=== PATIENT | female | born 1975 | race Caucasian/White ===

== ENCOUNTER → 2016-11-16 | Day surgery (SDC) | payer OTHER ==
[~2016-11-16] VITALS: Ht 157.5 cm; Wt 65.8 kg
[~2016-11-16] MED LIST: ABIL2TAB2 PO; ADDE10CA PO; BUTA-198 PO; CEPH500C PO; ESTR0.5T3 PO; ESTR25TA PO; LIDOCAINE 2% 5ML JELLY UROJET As Ordered ONE; LIDOCAINE 2% 5ML JELLY UROJET XX ONE; LIDOCAINE 2% INJ 100 MG/5 ML SDV (FOR ANES.) As Ordered ONE; LIDOCAINE 2% MDV 20 ML VIAL As Ordered ONE; LIDOCAINE 2% MDV 20 ML VIAL XX ONE; LR 1,000 ML IV SCH; MIDAZOLAM INJ 2 MG/2 ML VIAL (J2250) As Ordered ONE; MINI1CAP PO; ONDANSETRON 4MG/2ML VIAL (J2405) As Ordered ONE; OXYC1TAB23 PO; PARO20TA2 PO; PARO40TA PO; PARO40TA87 PO; PAXI30TA11 PO; PERCOCET 5MG/325MG TAB As Ordered ONE; PERCOCET 5MG/325MG TAB PO ONE; PERCOCET PO; PRAZ2CAP PO; PROPOFOL 200 MG/20 ML VIAL As Ordered ONE; TRAZ100T4 PO; TRAZO50TA PO; ZOMI5TAB4 PO; ZONE100C4 PO; ZONI100C2 PO; botox; dexameTHASONE 4 MG/ML 1ML VIAL (J1100) As Ordered ONE; fentaNYL 250 MCG/5 ML INJECTION (J3010) As Ordered ONE
[2016-11-16 09:24] LABS: MEAN CORPUSCULAR HEMOGLOBIN 29.3 pg (27.0-33.0); MEAN CORPUSCULAR HGB CONC 33.4 g/dl (32.0-36.5); MEAN CORPUSCULAR VOLUME 87.8 fl (80.0-96.0); RED CELL DISTRIBUTION WIDTH 12.5 % (11.5-14.5); WHITE BLOOD COUNT 5.4 K/mm3 (4.0-10.0)
[2016-11-16 09:31] LABS: CONTROL LINE HCG INT CTR LINE PRESENT
[2016-11-16 09:35] LABS: ANION GAP 9 MEQ/L (8-16); BLOOD UREA NITROGEN 18 MG/DL (7-18); CARBON DIOXIDE LEVEL 27 MEQ/L (21-32); CHLORIDE LEVEL 109 MEQ/L (98-107); CREATININE FOR GFR 0.89 MG/DL (0.55-1.02); GLOMERULAR FILTRATION RATE > 60.0 (>58); GLUCOSE, FASTING 96 MG/DL (70-105); POTASSIUM SERUM 4.5 MEQ/L (3.5-5.1); SODIUM LEVEL 145 MEQ/L (136-145)
[2016-11-16 10:50] VITALS: BP 119/78
--- NOTE | 2016-11-17 08:20 | RO ---
DATE OF PROCEDURE: 11/16/2016 PREOPERATIVE DIAGNOSIS: Interstitial cystitis with suprapubic pain and pressure. POSTOPERATIVE DIAGNOSIS: Interstitial cystitis with suprapubic pain and pressure. PROCEDURE: Cystoscopy, hydrodistention, intravesical lidocaine. SURGEON: Dr. Karolina Mosquera ANESTHESIA: Monitored anesthesia care (MAC). MEDICATIONS: Ancef 2 grams preoperatively. FINDINGS: Total bladder capacity under anesthesia of 500 mL without findings of significant glomerulations. There was some hyperemia. HISTORY OF PRESENT ILLNESS: The patient is a 41-year-old female with a history of interstitial cystitis for the last 10 years also complicated by an occasional bacterial urinary tract infection (UTI). She feels like she has a urinary tract infection all the time, constant suprapubic pain and pressure, and a feeling like she needs to urinate, with spasming after urination. She has tried multiple medications in the past including Elmiron, prophylactic antibiotics, and antispasmodics, but she has difficulty tolerating these for different reasons. She did have a cystoscopy and hydrodistention the past which was useful. After discussing all different options, alternatives, risks, and benefits, it was decided to proceed with the surgical procedure. PROCEDURE: The patient was brought into the operating room. Sequential compression devices and thromboembolic deterrent (KENYA) stockings were in place. She was given Ancef 2 grams preoperatively. She was then given anesthesia with MAC and then placed in the lithotomy position. Careful attention was paid that her pressure points were well padded and protected. Next, she was prepped and draped in the usual fashion. A 22-Iraqi cystoscope was inserted. The urethra was noted to be open without any evidence of lesions or strictures. The bladder neck was slightly tight, so she was dilated to a 32-Iraqi with a female sound. Upon entering the bladder, both ureteral orifices were seen. There was no evidence of stones, erythematous patches, lesions or other significant abnormalities. The patient's bladder was emptied and then she was filled under gravity drainage with normal saline and this was held in place for 7 minutes. This was then drained and her total bladder capacity was 500 mL. This was then repeated and again her bladder capacity was approximately 500 mL. After distention, there were no significant glomerulations. There was only hyperemia seen. Next, a red rubber catheter was placed and a solution of 20 mL of 2% lidocaine mixed with lidocaine jelly 10 mL was placed in the bladder for postoperative pain control. The patient tolerated the procedure well and was returned to the recovery room in stable condition.
== END ==
LOC: M SDC 08:51
PROVIDERS: ATTEND Specialist
DX: N30.10 Interstitial cystitis (chronic) without hematuria (principal); R10.2 Pelvic and perineal pain; R30.1 Vesical tenesmus; Z87.440 Personal history of urinary (tract) infections; F41.9 Anxiety disorder, unspecified; F32.9 Major depressive disorder, single episode, unspecified; K58.9 Irritable bowel syndrome, unspecified; N80.9 Endometriosis, unspecified; Z79.899 Other long term (current) drug therapy; Z79.2 Long term (current) use of antibiotics
CPT/HCPCS: 36415; 52265; 80048; 84703; 85027; C1726

== ENCOUNTER → 2016-11-21 | Outpatient (CLI) | payer OTHER ==
[~2016-11-21] MED LIST changes: -LIDOCAINE 2% 5ML JELLY UROJET As Ordered ONE; -LIDOCAINE 2% 5ML JELLY UROJET XX ONE; -LIDOCAINE 2% INJ 100 MG/5 ML SDV (FOR ANES.) As Ordered ONE; -LIDOCAINE 2% MDV 20 ML VIAL As Ordered ONE; -LIDOCAINE 2% MDV 20 ML VIAL XX ONE; -LR 1,000 ML IV SCH; -MIDAZOLAM INJ 2 MG/2 ML VIAL (J2250) As Ordered ONE; -ONDANSETRON 4MG/2ML VIAL (J2405) As Ordered ONE; -PERCOCET 5MG/325MG TAB As Ordered ONE; -PERCOCET 5MG/325MG TAB PO ONE; -PROPOFOL 200 MG/20 ML VIAL As Ordered ONE; -dexameTHASONE 4 MG/ML 1ML VIAL (J1100) As Ordered ONE; -fentaNYL 250 MCG/5 ML INJECTION (J3010) As Ordered ONE
--- NOTE | 2016-11-21 16:06 | REP ---
Clinical: Generalized abdominal pain. Technique: Upright view of the chest with supine and upright views of the abdomen and pelvis. Findings: Frontal upright view of the chest demonstrates no acute cardiopulmonary process or free air below the diaphragm to suspect pneumoperitoneum. Supine and upright views of the abdomen and pelvis demonstrate nonspecific bowel gas pattern without obstruction or perforation. Contrast within the colon. No organomegaly. No abnormal calcifications. Skeletal structures normal for age. Impression: Nonspecific bowel gas pattern. Signed by Javier Hernandez MD 11/21/2016 03:58 P
== END ==
LOC: M RAD 15:05 → M LAB 15:05
PROVIDERS: ATTEND Physician Assistant Medical
DX: R10.84 Generalized abdominal pain (principal); R11.0 Nausea; K58.1 Irritable bowel syndrome with constipation

== ENCOUNTER → 2016-11-26 | Outpatient (CLI) | payer OTHER ==
[2016-11-26 17:59] LABS: ALBUMIN 3.6 GM/DL (3.2-5.2); ALBUMIN/GLOBULIN RATIO 1.16 (1.00-1.93); BILIRUBIN,DIRECT 0.2 MG/DL (0.0-0.2); BILIRUBIN,TOTAL 0.5 MG/DL (0.2-1.0); TOTAL PROTEIN 6.7 GM/DL (6.4-8.2)
--- NOTE | 2016-11-26 18:34 | REP ---
Abdominal series: Four views: History: Abnormal liver function studies. Findings: Upright chest radiograph is normal. There is no evidence of infiltrate or free subdiaphragmatic air. Heart is not enlarged. Supine and erect views of the abdomen show a normal bowel gas pattern with air and stool in a nondistended colon. No small bowel dilation is seen. Flank stripes are intact. Psoas margins appear symmetric. No significant bony abnormality is seen. Impression: Unremarkable abdominal series. Signed by Ambrocio Landeros MD 11/26/2016 08:06 P
== END ==
LOC: M LAB 16:43
PROVIDERS: ATTEND Physician Assistant Medical
DX: R94.5 Abnormal results of liver function studies (principal); K58.1 Irritable bowel syndrome with constipation; R10.84 Generalized abdominal pain

== ENCOUNTER → 2016-12-04 | Outpatient (CLI) | payer BC, OTHER ==
--- NOTE | 2016-12-05 06:00 | REP ---
MRCP: MRCP exam is accomplished utilizing multiple heavily T2-weighted sequences in the axial and coronal planes with MIP reconstruction images. The gallbladder is mildly distended with no definite filling defect. There is no intrahepatic biliary dilatation. Common bile duct is again mildly dilated as seen on prior CT exam of 03/15/2016. Maximum diameter is 9 mm. There is no definite filling defect or stone in the common bile duct. Distal stricture is not excluded. The pancreatic duct is normal in caliber. The other visualized upper abdominal structures appear unremarkable. No free fluid is seen. IMPRESSION: Once again, mildly dilated common bile duct is seen with a maximum diameter of 9 mm. The duct tapers distally. Distal stricture cannot totally be excluded. Further evaluation may be made with conventional ERCP. Signed by Daniel Wilson MD 12/05/2016 10:12 A
== END ==
LOC: M RAD 17:27
PROVIDERS: ATTEND Physician Assistant Medical
DX: R93.3 Abnormal findings on diagnostic imaging of other parts of digestive tract (principal); R10.84 Generalized abdominal pain; K83.8 Other specified diseases of biliary tract

== ENCOUNTER → 2016-12-13 | Outpatient (CLI) | payer OTHER ==
[~2016-12-13] VITALS: Ht 157.5 cm; Wt 66.2 kg
[~2016-12-13] MED LIST changes: +LIDOCAINE 2% INJ 100 MG/5 ML SDV (FOR ANES.) As Ordered ONE; +LINZ290C PO; +NS 1,000 ML IV SCH; +PROPOFOL 500 MG/50 ML VIAL As Ordered ONE
--- NOTE | 2016-12-13 13:49 | ROOR ---
Patient Name: Tran Voss Procedure Date: 12/13/2016 1:35 PM Date of : 1975 Age: 41 Room: [facility] Gender: Female Note Status: Finalized Procedure: Upper GI endoscopy Indications: Epigastric abdominal pain, Nausea with vomiting Providers: Duane TILLEY MD Referring MD: BRIDGETTE CATHERINE MD Requesting Provider: Medicines: Monitored Anesthesia Care Complications: No immediate complications. Procedure: Pre-Anesthesia Assessment: - The heart rate, respiratory rate, oxygen saturations, blood pressure, adequacy of pulmonary ventilation, and response to care were monitored throughout the procedure. The Endoscope was introduced through the mouth, and advanced to the second part of duodenum. The upper GI endoscopy was accomplished without difficulty. The patient tolerated the procedure well. Findings: The esophagus was normal. The stomach was normal. The examined duodenum was normal. Impression: - Normal esophagus. - Normal stomach. - Normal examined duodenum. - No specimens collected. Recommendation: - Observe patient's clinical course. Duane Tilley MD Duane TILLEY MD 12/13/2016 1:48:50 PM This report has been signed electronically. Number of Addenda: 0 Note Initiated On: 12/13/2016 1:35 PM Estimated Blood Loss: Estimated blood loss: none.
--- NOTE | 2016-12-13 14:01 | ROOR ---
Patient Name: Tran Voss Procedure Date: 12/13/2016 1:36 PM Date of : 1975 Age: 41 Room: [facility] Gender: Female Note Status: Finalized Procedure: Colonoscopy Indications: Generalized abdominal pain, Constipation Providers: Duane TILLEY MD Referring MD: BRIDGETTE CATHERINE MD Requesting Provider: Medicines: Monitored Anesthesia Care Complications: No immediate complications. Procedure: Pre-Anesthesia Assessment: - The heart rate, respiratory rate, oxygen saturations, blood pressure, adequacy of pulmonary ventilation, and response to care were monitored throughout the procedure. The Colonoscope was introduced through the anus and advanced to 6 cm into the ileum. The colonoscopy was performed without difficulty. The patient tolerated the procedure well. The quality of the bowel preparation was good. Findings: The perianal and digital rectal examinations were normal. (Exam: Complete, Prep: Good or Excellent.) The terminal ileum appeared normal. The entire examined colon appeared normal on direct and retroflexion views. Impression: - The examined portion of the ileum was normal. - The entire examined colon is normal on direct and retroflexion views. - No specimens collected. Recommendation: - Use fiber, for example Citrucel, Fibercon, Konsyl or Metamucil. - Continue present medications. - Please get your blood work completed- We are awaiting labs Duane Tilley MD Duane TILLEY MD 12/13/2016 2:00:14 PM This report has been signed electronically. Number of Addenda: 0 Note Initiated On: 12/13/2016 1:36 PM Estimated Blood Loss: Estimated blood loss: none.
[2016-12-13 14:30] VITALS: BP 118/67
== END ==
LOC: M OPP 11:14
PROVIDERS: ATTEND Internal Medicine Gastroenterology
DX: R10.84 Generalized abdominal pain (principal); K59.00 Constipation, unspecified; R10.13 Epigastric pain; R11.2 Nausea with vomiting, unspecified; F41.9 Anxiety disorder, unspecified; F32.9 Major depressive disorder, single episode, unspecified; G43.909 Migraine, unspecified, not intractable, without status migrainosus; N30.10 Interstitial cystitis (chronic) without hematuria; Z79.899 Other long term (current) drug therapy; Z88.8 Allergy status to other drugs, medicaments and biological substances; Z88.1 Allergy status to other antibiotic agents

== ENCOUNTER → 2016-12-14 | Outpatient (CLI) | payer OTHER ==
[~2016-12-14] MED LIST changes: -LIDOCAINE 2% INJ 100 MG/5 ML SDV (FOR ANES.) As Ordered ONE; -NS 1,000 ML IV SCH; -PROPOFOL 500 MG/50 ML VIAL As Ordered ONE
[2016-12-14 13:15] LABS: ALBUMIN 3.5 GM/DL (3.2-5.2); ALBUMIN/GLOBULIN RATIO 1.17 (1.00-1.93); ALKALINE PHOSPHATASE 135 U/L (45-117); ALT/SGPT 83 U/L (12-78); AST/SGOT 74 U/L (15-37); BILIRUBIN,DIRECT 0.1 MG/DL (0.0-0.2); BILIRUBIN,TOTAL 0.4 MG/DL (0.2-1.0); PERCENT SATURATION 19.9 % (13.2-37.4); TOTAL IRON BINDING CAPACITY 311 UG/DL (250-450); TOTAL PROTEIN 6.5 GM/DL (6.4-8.2)
== END ==
LOC: M LAB 11:18
PROVIDERS: ATTEND Physician Assistant Medical
DX: R94.5 Abnormal results of liver function studies (principal)

== ENCOUNTER → 2016-12-25 | Day surgery (SDC) | payer OTHER ==
[~2016-12-25] VITALS: Ht 157.5 cm; Wt 65.3 kg
[~2016-12-25] MED LIST changes: +BENT20TA PO; +GLYCOPYRROLATE INJ 0.2 MG/ML 2 ML VIAL As Ordered ONE; +ISOVUE-300 61% 50ML VIAL (Q9967) As Ordered ONE; +LIDOCAINE 2% INJ 100 MG/5 ML SDV (FOR ANES.) As Ordered ONE; +LR 1,000 ML IV SCH; +MIDAZOLAM INJ 2 MG/2 ML VIAL (J2250) As Ordered ONE; +NEOSTIGMINE 1MG/ML 5 ML SYRINGE (J2710) As Ordered ONE; +OMEP20CA3 PO; +ONDANSETRON 4MG/2ML VIAL (J2405) As Ordered ONE; +ONDANSETRON 4MG/2ML VIAL (J2405) IV PRN; +PERCOCET 5MG/325MG TAB PO PRN; +PROPOFOL 200 MG/20 ML VIAL As Ordered ONE; +ROCURONIUM BROMIDE 50 MG/5 ML VIAL As Ordered ONE; +SCOPOLAMINE 1.5 MG TRANSDERMAL As Ordered ONE; +SEVOFLURANE INHAL SOLN 250 ML BTL As Ordered ONE; +SIME1CAP PO; +SUCCINYLCHOLINE 100 MG/5 ML SYRINGE (J0330) As Ordered ONE; +dexameTHASONE 4 MG/ML 1ML VIAL (J1100) As Ordered ONE; +fentaNYL 100 MCG/2 ML INJECTION (J3010) As Ordered ONE; +fentaNYL 100 MCG/2 ML INJECTION (J3010) IV PRN
--- NOTE | 2016-12-25 09:42 | ROOR ---
Patient Name: Tran Voss Procedure Date: 12/25/2016 8:25 AM Date of : 1975 Age: 41 Room: [facility] Gender: Female Note Status: Finalized Procedure: ERCP Indications: Abdominal pain of suspected biliary origin,Elevated liver enzymes, Biliary dilation on Ultrasound, Evaluation and possible treatment of bile duct stone(s), Evaluate and treat sphincter of oddi dysfunction Providers: Duane TILLEY MD Referring MD: BRIDGETTE CATHERINE MD Requesting Provider: Medicines: Monitored Anesthesia Care, General Anesthesia Complications: No immediate complications. Procedure: Pre-Anesthesia Assessment: - The heart rate, respiratory rate, oxygen saturations, blood pressure, adequacy of pulmonary ventilation, and response to care were monitored throughout the procedure. The Duodenoscope was introduced through the mouth, and advanced to the duodenum and used to inject contrast into the bile duct and ventral pancreatic duct. The ERCP was accomplished without difficulty. The patient tolerated the procedure well. Findings: The photographic specialist film was normal. The esophagus was successfully intubated under direct vision without detailed examination of the pharynx, larynx, and associated structures, and upper GI tract. The upper GI tract was grossly normal. The major papilla was small. I do not see any bile flowing from papilla after several minutes of observation. The ventral pancreatic duct was cannulated with the short-nosed traction sphincterotome. Contrast was injected. I personally interpreted the bile duct and pancreatic duct images. Ductal flow of contrast was adequate. Image quality was adequate. Opacification of the main pancreatic duct was successful. The maximum diameter of the pancreatic duct was 3 mm. The entire pancreatic duct was normal. One 4 Fr by 4 cm temporary stent with a 3/4 external pigtail and no internal flaps was placed into the ventral pancreatic duct. Clear fluid flowed through the stent. The stent was in good position. A straight Roadrunner wire was passed into the biliary tree. The short-nosed traction sphincterotome was passed over the guidewire and the bile duct was then deeply cannulated. Contrast was injected. Opacification of the entire biliary tree was successful. The common bile duct and common hepatic duct is dilated. The maximum diameter of the ducts was 10 mm. The distal bile duct tapers smoothly towards the papilla. The biliary tree was otherwise normal. A 6 mm biliary sphincterotomy was made with a monofilament traction (standard) sphincterotome using ERBE electrocautery. There was no post-sphincterotomy bleeding. The biliary tree was swept with a 10 mm balloon starting at the bifurcation. Nothing was found. Impression: - The major papilla appeared to be small and I see no bile flow after several minutes of observation. - The bile duct is dilated to 10 mm, with distal taper towards the papilla. - The biliary tree was swept and nothing was found. - A biliary sphincterotomy was performed. - The pancreatogram was normal. One temporary stent was placed into the ventral pancreatic duct. Recommendation: - Observe patient's clinical course following today's ERCP with therapeutic intervention. - The patient will be observed post-procedure, until all discharge criteria are met. - Return to my office in 2 weeks. - Confirm spontaneous stent passage by performing a KUB x-ray in 2 weeks. Duane Tilley MD Duane TILLEY MD 12/25/2016 9:41:58 AM This report has been signed electronically. Number of Addenda: 0 Note Initiated On: 12/25/2016 8:25 AM Estimated Blood Loss: Estimated blood loss: none.
[2016-12-25] MEDS: HYDROmorphone HCL 1 MG/ML SYRINGE (J1170) IV PRN ×3 (10:26→10:38)
--- NOTE | 2016-12-25 10:43 | REP ---
FLUOROSCOPIC-GUIDED ERCP IN OR IMAGES: 12/25/2016. Comparison: MRCP 12/04/2016, CT abdomen 03/15/2016. Clinical history: Dilated common duct in the brii hepatis. Evaluate for distal stricture. Findings: Six images from C-arm fluoroscopy provided to Dr. Tilley of the gastroenterology division. With an assumed 11 diameter of the endoscope, the maximum diameter of the common duct in the brii hepatis is 10.2 mm. I do not see filling defects on injection. It tapers distally in the pancreatic head. The pancreatic duct is 2 mm and on some images has a mild irregularity of its contour in the pancreatic head and neck. The last image of the common duct shows some air bubbles within it but there was no filling defect on any other image. The intrahepatic common duct, right and left main hepatic ducts were unremarkable and without filling defects. Contrast reaches the gallbladder. IMPRESSION: 1. No filling defects in the common duct with but it tapers in the pancreatic head before the ampulla as does the pancreatic duct with a separate orifice. Pancreatic duct 2 mm not significantly enlarged. Fluoroscopy time: 1 minute 49 seconds. Signed by Jovon Ibrahim MD 12/25/2016 05:05 P
[2016-12-25 13:00] VITALS: BP 116/62
== END ==
LOC: M SDC 06:27
PROVIDERS: ATTEND Internal Medicine Gastroenterology
DX: R10.9 Unspecified abdominal pain (principal); R74.8 Abnormal levels of other serum enzymes; K83.8 Other specified diseases of biliary tract; K58.9 Irritable bowel syndrome, unspecified; F41.9 Anxiety disorder, unspecified; F32.9 Major depressive disorder, single episode, unspecified; F90.9 Attention-deficit hyperactivity disorder, unspecified type; Z87.42 Personal history of other diseases of the female genital tract; Z88.1 Allergy status to other antibiotic agents; Z88.8 Allergy status to other drugs, medicaments and biological substances
CPT/HCPCS: 43274; 74330; 99156; 99157; C2617

== ENCOUNTER 2016-12-31 14:12 | Emergency (ER) | payer OTHER ==
[~2016-12-31] VITALS: Ht 157.5 cm; Wt 67.1 kg
[~2016-12-31 14:12] MED LIST changes: -BENT20TA PO; -GLYCOPYRROLATE INJ 0.2 MG/ML 2 ML VIAL As Ordered ONE; -ISOVUE-300 61% 50ML VIAL (Q9967) As Ordered ONE; -LIDOCAINE 2% INJ 100 MG/5 ML SDV (FOR ANES.) As Ordered ONE; -LR 1,000 ML IV SCH; -MIDAZOLAM INJ 2 MG/2 ML VIAL (J2250) As Ordered ONE; -NEOSTIGMINE 1MG/ML 5 ML SYRINGE (J2710) As Ordered ONE; -OMEP20CA3 PO; -ONDANSETRON 4MG/2ML VIAL (J2405) As Ordered ONE; -ONDANSETRON 4MG/2ML VIAL (J2405) IV PRN; -PARO20TA2 PO; +PARO20TA3 PO; -PARO40TA PO; +PARO40TA2 PO; -PERCOCET 5MG/325MG TAB PO PRN; -PROPOFOL 200 MG/20 ML VIAL As Ordered ONE; -ROCURONIUM BROMIDE 50 MG/5 ML VIAL As Ordered ONE; -SCOPOLAMINE 1.5 MG TRANSDERMAL As Ordered ONE; -SEVOFLURANE INHAL SOLN 250 ML BTL As Ordered ONE; -SIME1CAP PO; -SUCCINYLCHOLINE 100 MG/5 ML SYRINGE (J0330) As Ordered ONE; -dexameTHASONE 4 MG/ML 1ML VIAL (J1100) As Ordered ONE; -fentaNYL 100 MCG/2 ML INJECTION (J3010) As Ordered ONE; -fentaNYL 100 MCG/2 ML INJECTION (J3010) IV PRN
[2016-12-31] MEDS ORDERED: NS 1,000 ML IV ONE (14:45)
[2016-12-31 15:07] LABS: BASO % 0.7 % (0.0-1.0); EOS # 0.2 K/mm3 (0.0-0.50); EOS % 2.1 % (0.0-3.0); LARGE UNSTAINED CELL # 0.1 K/mm3 (0.0-0.4); LYMPH # 2.3 K/mm3 (1.5-4.5); LYMPH % 28.8 % (24.0-44.0); MEAN CORPUSCULAR HEMOGLOBIN 28.4 pg (27.0-33.0); MEAN CORPUSCULAR HGB CONC 32.5 g/dl (32.0-36.5); MEAN CORPUSCULAR VOLUME 87.4 fl (80.0-96.0); MONO # 0.3 K/mm3 (0.0-0.8); MONO % 4.5 % (0.0-5.0); NEUTROPHILS # 4.8 K/mm3 (1.8-7.7); NEUTROPHILS % 62.8 % (36.0-66.0); PLATELET COUNT, AUTOMATED 217 k/mm3 (150-450); RED CELL DISTRIBUTION WIDTH 13.3 % (11.5-14.5); WHITE BLOOD COUNT 7.6 K/mm3 (4.0-10.0)
[2016-12-31 15:33] LABS: ALBUMIN 3.1 GM/DL (3.2-5.2); ALBUMIN/GLOBULIN RATIO 1.15 (1.00-1.93); ALKALINE PHOSPHATASE 105 U/L (45-117); ALT/SGPT 29 U/L (12-78); AMYLASE 34 U/L (25-115); ANION GAP 5 MEQ/L (8-16); AST/SGOT 19 U/L (15-37); BILIRUBIN,DIRECT < 0.1 MG/DL (0.0-0.2); BILIRUBIN,TOTAL 0.3 MG/DL (0.2-1.0); BLOOD UREA NITROGEN 25 MG/DL (7-18); CALCIUM LEVEL 8.3 MG/DL (8.5-10.1); CARBON DIOXIDE LEVEL 25 MEQ/L (21-32); CHLORIDE LEVEL 110 MEQ/L (98-107); CREATININE FOR GFR 0.71 MG/DL (0.55-1.02); GLOMERULAR FILTRATION RATE > 60.0 (>58); GLUCOSE, FASTING 103 MG/DL (70-105); POTASSIUM SERUM 4.3 MEQ/L (3.5-5.1); SODIUM LEVEL 140 MEQ/L (136-145); TOTAL PROTEIN 5.8 GM/DL (6.4-8.2)
[2016-12-31] MEDS ORDERED: KETOROLAC 30 MG/ML VIAL (J1885) IV ONE (16:45)
[2016-12-31 17:54] VITALS: BP 116/57
[2016-12-31] MEDS ORDERED: BENT20TA PO (18:13)
[2016-12-31] MEDS ORDERED: SIME1CAP PO (18:13)
[2016-12-31] MEDS ORDERED: OMEP20CA3 PO (18:13)
--- NOTE | 2016-12-31 18:29 | REP ---
GALLBLADDER ULTRASOUND: HISTORY: Right upper quadrant pain. COMPARISON: 04/14/2016 Once again, the gallbladder is somewhat contracted. This causes artifactual wall thickening. The appearance of this is unchanged from the prior exam. The common bile duct is again seen to be upper limits of normal measuring between 6-7 mm status quo. There is no intrahepatic ductal dilatation. There is no evidence of a liver mass. The parenchymal echo pattern is unchanged from the prior exam. The imaged portion of the right kidney is unchanged from the prior exam showing no evidence of a gross abnormality. The imaged portion of the pancreas is also unchanged showing no gross abnormality. IMPRESSION: No significant change from the prior exam but findings as described above. Signed by Patrick Castellano DO 12/31/2016 06:49 P
== END 2016-12-31 18:25 | disposition home or self-care (01) ==
LOC: M ED 15:38
DX: K80.50 Calculus of bile duct without cholangitis or cholecystitis without obstruction (principal); G89.29 Other chronic pain; R10.9 Unspecified abdominal pain; Z79.899 Other long term (current) drug therapy; Z88.8 Allergy status to other drugs, medicaments and biological substances

== ENCOUNTER → 2017-01-08 | Outpatient (CLI) | payer OTHER ==
[~2017-01-08] MED LIST changes: +BENT20TA PO; +OMEP20CA3 PO; +SIME1CAP PO
[2017-01-08 14:49] LABS: INR 1.02
[2017-01-08 14:50] LABS: MEAN CORPUSCULAR HEMOGLOBIN 28.7 pg (27.0-33.0); MEAN CORPUSCULAR HGB CONC 32.8 g/dl (32.0-36.5); MEAN CORPUSCULAR VOLUME 87.5 fl (80.0-96.0); RED CELL DISTRIBUTION WIDTH 13.3 % (11.5-14.5); WHITE BLOOD COUNT 10.8 K/mm3 (4.0-10.0)
[2017-01-08 15:25] LABS: ALBUMIN 3.5 GM/DL (3.2-5.2); ALBUMIN/GLOBULIN RATIO 1.09 (1.00-1.93); BILIRUBIN,DIRECT 0.1 MG/DL (0.0-0.2); BILIRUBIN,TOTAL 0.4 MG/DL (0.2-1.0); TOTAL PROTEIN 6.7 GM/DL (6.4-8.2)
--- NOTE | 2017-01-08 16:38 | REP ---
ABDOMINAL SERIES: Supine and erect views of the abdomen demonstrate no free air. No evidence for bowel obstruction. Tiny calcific densities in the pelvis are most consistent with phleboliths as seen on prior study of 11/26/2016. No dilated small bowel loops are seen. Visualized osseous structures appear unremarkable. An accompanying PA view of the chest demonstrates no acute infiltrate. The heart is normal in size and the mediastinal silhouette is unremarkable. IMPRESSION: Negative abdominal series. Signed by Daniel Wilson MD 01/08/2017 04:52 P
== END ==
LOC: M LAB 13:56
PROVIDERS: ATTEND Physician Assistant Medical
DX: R94.5 Abnormal results of liver function studies (principal); K83.8 Other specified diseases of biliary tract; R10.11 Right upper quadrant pain

== ENCOUNTER → 2017-01-11 | Outpatient (CLI) | payer OTHER ==
--- NOTE | 2017-01-11 11:02 | REP ---
Hepatobiliary scan and gallbladder ejection fraction: History: Right upper quadrant pain, nausea and vomiting. Comparison study is from December 01, 2013. Technique: 6.3 mCi of technetium-99m mebrofenin was injected and sequential anterior images are acquired. 65 minutes after the mebrofenin injection, the patient consumed 8 ounces Ensure and an additional 60 minutes of imaging was acquired. Regions of interest are plotted around the gallbladder. Findings: The initial hepatocellular parenchymal uptake phase is normal and homogeneous. Intra- and extra-hepatic bile ducts and duodenum are labeled by the 10 -minute image. The gallbladder is first labeled on the 20 -minute image. There is normal washout from the liver parenchyma into the gallbladder and small intestine on subsequent images. The gallbladder ejection fraction is 94 %. Values greater than 35 % are considered normal with this technique. Impression: Normal hepatobiliary scan and normal gallbladder ejection fraction. Signed by Ambrocio Landeros MD 01/11/2017 10:53 A
== END ==
LOC: M RAD 07:26
PROVIDERS: ATTEND Physician Assistant Medical
DX: R10.11 Right upper quadrant pain (principal); R11.2 Nausea with vomiting, unspecified; K83.8 Other specified diseases of biliary tract

== ENCOUNTER → 2017-01-30 | Outpatient (CLI) | payer OTHER ==
--- NOTE | 2017-01-30 11:40 | REP ---
nuclear gastric emptying scan. Following the oral administration of 1.05 millicuries technetium 99m, sulfur colloid in two scrambled eggs and 6 ounces of water. Multiple images of the upper abdomen are performed in the anterior and posterior projections. Imaging is performed for 90 minutes. Gastric activity is measured and the gastric emptying time is calculated. At the end of 90 minutes, 36% of the ingested activity has emptied from the stomach. This yields a t-1/2 of 127 minutes, which is above the normal value of 90 minutes. IMPRESSION: Mildly delayed gastric emptying. Signed by Daniel Wilson MD 01/30/2017 04:46 P
== END ==
LOC: M RAD 07:59
PROVIDERS: ATTEND Physician Assistant Medical
DX: R11.0 Nausea (principal); R68.81 Early satiety; R10.11 Right upper quadrant pain; K30 Functional dyspepsia

== ENCOUNTER → 2017-02-19 | Outpatient (CLI) | payer OTHER ==
[2017-02-19 12:45] LABS: FREE T4 0.95 NG/DL (0.76-1.46)
== END ==
LOC: M LAB 11:18
PROVIDERS: ATTEND Physician Assistant Medical
DX: K31.84 Gastroparesis (principal)

== ENCOUNTER → 2017-03-06 | Day surgery (SDC) | payer OTHER ==
[~2017-03-06] VITALS: Ht 157.5 cm; Wt 68.0 kg
[~2017-03-06] MED LIST changes: +BUPIVACAINE/EPIN 0.25% 30 ML VIAL As Ordered ONE; +DESFLURANE 240 ML INHALANT As Ordered ONE; +GLYCOPYRROLATE INJ 0.2 MG/ML 2 ML VIAL As Ordered ONE; +HYDROmorphone HCL 2 MG/ML 1ML VIAL (J1170) As Ordered ONE; +KETOROLAC 60 MG/2 ML VIAL (J1885) As Ordered ONE; +LIDOCAINE 2% INJ 100 MG/5 ML SDV (FOR ANES.) As Ordered ONE; +LR 1,000 ML IV SCH; +METOCLOPRAMIDE INJ 10MG/2ML VIAL (J2765) As Ordered ONE; +METOCLOPRAMIDE INJ 10MG/2ML VIAL (J2765) IV PRN; +MIDAZOLAM INJ 2 MG/2 ML VIAL (J2250) As Ordered ONE; +MORPHINE 4 MG/ML 1ML SYRINGE As Ordered ONE; +NEOSTIGMINE 1MG/ML 5 ML SYRINGE (J2710) As Ordered ONE; +NORCO, ANEXSIA 5/325MG TABLET (HYDROcodone/ACETAMINOPHEN) PO PRN; +ONDANSETRON 4MG/2ML VIAL (J2405) As Ordered ONE; +ONDANSETRON 4MG/2ML VIAL (J2405) IV PRN; +PHENYLephrine HCL 500 MCG/5 ML (100MCG/ML) SYRINGE (J2370) As Ordered ONE; +PROPOFOL 500 MG/50 ML VIAL As Ordered ONE; +SCOPOLAMINE 1.5 MG TRANSDERMAL As Ordered ONE; +SCOPOLAMINE 1.5 MG TRANSDERMAL TOP ONE; +SEVOFLURANE INHAL SOLN 250 ML BTL As Ordered ONE; +dexameTHASONE 4 MG/ML 1ML VIAL (J1100) As Ordered ONE; +ePHEDrine SULFATE 25 MG/5 ML(5MG/ML) SYRINGE As Ordered ONE; +fentaNYL 100 MCG/2 ML INJECTION (J3010) As Ordered ONE; +fentaNYL 100 MCG/2 ML INJECTION (J3010) IV PRN
[2017-03-06] MEDS: MORPHINE 2 MG/ML 1ML SYRINGE IV PRN ×5 (08:46→09:30)
[2017-03-06] MEDS: PERCOCET 5MG/325MG TAB PO PRN ×2 (09:21→10:12)
--- NOTE | 2017-03-06 10:40 | RO ---
DATE OF PROCEDURE: 03/06/2017 PREOPERATIVE DIAGNOSIS: Chronic cholecystitis. POSTOPERATIVE DIAGNOSIS: Chronic cholecystitis. PROCEDURE: Laparoscopic cholecystectomy. SURGEON: Daniel Bowers DO MEDICAL STENOGRAPHER: Jonathna Isaacs MD ANESTHESIA: General. ESTIMATED BLOOD LOSS (EBL): 5. COMPLICATIONS: None. INDICATIONS FOR PROCEDURE: The patient is a 41-year-old female who presents with right quadrant abdominal pain, found to have chronic cholecystitis. Recommendation to proceed with laparoscopic possible open cholecystectomy. Risks and benefits of the procedure not limited but including bleeding, infection, hernia formation, damage to surrounding structures, possible need for further surgery were discussed in detail with the patient. Informed consent was obtained, and procedure was planned. DESCRIPTION OF PROCEDURE: The patient brought back to operating room #3 after sufficient sedation and was sterilely prepped and draped. Next, time-out was done to confirm proper patient and proper procedure. Following that, a stab incision made in the left lower quadrant at Hoffman point. A Veress needle was inserted, and the abdomen was insufflated to 15 mmHg. Next, a 5 mm umbilical incision was created. A 5 mm Optiview port was then used to gain access to the abdomen. Once the abdomen was entered, Veress needle site was examined and showed no signs of injury. Veress needle was then removed. A 10 mm port site was then created at the subxiphoid. Two 5 mm ports in the right upper quadrant. The fundus of the gallbladder was then grasped and elevated up towards the right shoulder. The cystic duct and cystic artery were then both doubly clipped and cut. The gallbladder was removed from the gallbladder fossa using electrocautery and brought out through the subxiphoid port site into a 10 mm Endo Catch bag. The abdomen was then desufflated. Skin incisions were closed with #4-0 Vicryl subcuticular sutures. The abdomen was cleaned and dried. Steri-Strips, 4 x 4, and tape were applied, thus ending the procedure.
[2017-03-06 11:40] VITALS: BP 118/57
== END | disposition home or self-care (01) ==
LOC: M SDC 06:16
PROVIDERS: ATTEND Surgery
DX: K81.1 Chronic cholecystitis (principal); N30.10 Interstitial cystitis (chronic) without hematuria; F41.9 Anxiety disorder, unspecified; F32.9 Major depressive disorder, single episode, unspecified; G43.909 Migraine, unspecified, not intractable, without status migrainosus; K58.9 Irritable bowel syndrome, unspecified; I51.9 Heart disease, unspecified; T88.59XD Other complications of anesthesia, subsequent encounter; K31.84 Gastroparesis; L30.9 Dermatitis, unspecified; F31.9 Bipolar disorder, unspecified; F43.10 Post-traumatic stress disorder, unspecified; R06.83 Snoring; G47.00 Insomnia, unspecified; Z88.1 Allergy status to other antibiotic agents; Z88.8 Allergy status to other drugs, medicaments and biological substances; Z91.040 Latex allergy status; Z79.899 Other long term (current) drug therapy; Z87.820 Personal history of traumatic brain injury; Z78.0 Asymptomatic menopausal state; Z90.710 Acquired absence of both cervix and uterus

== ENCOUNTER → 2018-07-04 | Outpatient (CLI) | payer OTHER ==
[2018-07-09 08:47] LABS: PROMETHEUS IBD ANTIBODIES SEE SEPARATE REPORT
[2018-07-09 08:48] LABS: PROMETHEUS IBD SNP SEE SEPARATE REPORT
== END ==
LOC: M LAB 09:53
DX: R10.9 Unspecified abdominal pain (principal); R93.3 Abnormal findings on diagnostic imaging of other parts of digestive tract; R63.4 Abnormal weight loss; K50.00 Crohn's disease of small intestine without complications; R11.0 Nausea
CPT/HCPCS: 36415

== ENCOUNTER 2018-09-27 12:27 | Emergency (ER) | payer OTHER ==
[~2018-09-27] VITALS: Ht 157.5 cm; Wt 47.7 kg
[~2018-09-27 12:27] MED LIST changes: +ABIL1TAB13 PO; -ABIL2TAB2 PO; -ADDE10CA PO; +ADDE10CA3 PO; -BUPIVACAINE/EPIN 0.25% 30 ML VIAL As Ordered ONE; -DESFLURANE 240 ML INHALANT As Ordered ONE; -GLYCOPYRROLATE INJ 0.2 MG/ML 2 ML VIAL As Ordered ONE; -HYDROmorphone HCL 2 MG/ML 1ML VIAL (J1170) As Ordered ONE; -KETOROLAC 60 MG/2 ML VIAL (J1885) As Ordered ONE; -LIDOCAINE 2% INJ 100 MG/5 ML SDV (FOR ANES.) As Ordered ONE; -LR 1,000 ML IV SCH; -METOCLOPRAMIDE INJ 10MG/2ML VIAL (J2765) As Ordered ONE; -METOCLOPRAMIDE INJ 10MG/2ML VIAL (J2765) IV PRN; -MIDAZOLAM INJ 2 MG/2 ML VIAL (J2250) As Ordered ONE; -MORPHINE 4 MG/ML 1ML SYRINGE As Ordered ONE; -NEOSTIGMINE 1MG/ML 5 ML SYRINGE (J2710) As Ordered ONE; -NORCO, ANEXSIA 5/325MG TABLET (HYDROcodone/ACETAMINOPHEN) PO PRN; -ONDANSETRON 4MG/2ML VIAL (J2405) As Ordered ONE; -ONDANSETRON 4MG/2ML VIAL (J2405) IV PRN; +PARO40TA3 PO; -PARO40TA87 PO; -PHENYLephrine HCL 500 MCG/5 ML (100MCG/ML) SYRINGE (J2370) As Ordered ONE; -PROPOFOL 500 MG/50 ML VIAL As Ordered ONE; -SCOPOLAMINE 1.5 MG TRANSDERMAL As Ordered ONE; -SCOPOLAMINE 1.5 MG TRANSDERMAL TOP ONE; -SEVOFLURANE INHAL SOLN 250 ML BTL As Ordered ONE; +TRAZ-163 PO; -TRAZ100T4 PO; +ZOMI5TAB12 PO; -ZOMI5TAB4 PO; -ZONE100C4 PO; +ZONE1CAP PO; -dexameTHASONE 4 MG/ML 1ML VIAL (J1100) As Ordered ONE; -ePHEDrine SULFATE 25 MG/5 ML(5MG/ML) SYRINGE As Ordered ONE; -fentaNYL 100 MCG/2 ML INJECTION (J3010) As Ordered ONE; -fentaNYL 100 MCG/2 ML INJECTION (J3010) IV PRN
[2018-09-27] MEDS ORDERED: LAMO25TA4 (12:43)
[2018-09-27] MEDS ORDERED: ESTR1TAB (12:43)
[2018-09-27] MEDS ORDERED: FLUO20CA19 (12:43)
[2018-09-27] MEDS ORDERED: METOCLOPRAMIDE INJ 10MG/2ML VIAL (J2765) IV ONE (13:00)
[2018-09-27] MEDS ORDERED: KETOROLAC 30 MG/ML VIAL (J1885) IV ONE (13:00)
[2018-09-27] MEDS ORDERED: ONDANSETRON 4MG/2ML VIAL (J2405) IV ONE (13:00)
[2018-09-27] MEDS ORDERED: NS 1,000 ML IV ONE (13:00)
--- NOTE | 2018-09-27 13:19 | REP ---
Clinical: Acute headache . Comparison: 09/02/2016 . Findings: The ventricles, sulci, and cisterns are normal in position and appearance. Wilson-white differentiation is maintained. No acute intracranial hemorrhage, mass/mass effect, pathology or trauma/injury. No evidence for acute infarction. No extra-axial fluid collection. Calvarium is intact. Paranasal sinuses and mastoid air cells are clear. Impression: Normal noncontrast head CT. No evidence for acute intracranial pathology or trauma/injury. Electronically Signed by Javier Hernandez MD 09/27/2018 01:11 P
[2018-09-27 13:31] LABS: BASO % 0.5 % (0.0-1.0); EOS # 0.1 10^3/uL (0.0-0.50); EOS % 1.6 % (0.0-3.0); HEMATOCRIT 39.6 % (36.0-47.0); HEMOGLOBIN 13.1 g/dl (12.0-15.5); LYMPH # 2.2 10^3/uL (1.5-4.5); LYMPH % 29.6 % (24.0-44.0); MEAN CORPUSCULAR HEMOGLOBIN 29.3 pg (27.0-33.0); MEAN CORPUSCULAR HGB CONC 33.1 g/dl (32.0-36.5); MEAN CORPUSCULAR VOLUME 88.6 fl (80.0-96.0); MONO # 0.4 10^3/uL (0.0-0.8); MONO % 4.7 % (0.0-5.0); NEUTROPHILS # 4.7 10^3/uL (1.8-7.7); NEUTROPHILS % 63.2 % (36.0-66.0); PLATELET COUNT, AUTOMATED 227 10^3/uL (150-450); RED BLOOD COUNT 4.47 10^6/uL (4.00-5.40); WHITE BLOOD COUNT 7.5 10^3/uL (4.0-10.0)
[2018-09-27 13:49] LABS: ALBUMIN 3.3 GM/DL (3.2-5.2); ALT/SGPT 25 U/L (12-78); BILIRUBIN,TOTAL 0.3 MG/DL (0.2-1.0); BLOOD UREA NITROGEN 18 MG/DL (7-18); CALCIUM LEVEL 8.4 MG/DL (8.5-10.1); CARBON DIOXIDE LEVEL 29 MEQ/L (21-32); CHLORIDE LEVEL 107 MEQ/L (98-107); CREATININE FOR GFR 0.69 MG/DL (0.55-1.30); GLOMERULAR FILTRATION RATE > 60.0 (>58); GLUCOSE, FASTING 79 MG/DL (70-100); POTASSIUM SERUM 4.3 MEQ/L (3.5-5.1); SODIUM LEVEL 140 MEQ/L (136-145); TOTAL PROTEIN 6.3 GM/DL (6.4-8.2)
[2018-09-27] MEDS ORDERED: diphenhydrAMINE INJ 50MG/ML VIAL (J1200) IV ONE (14:15)
[2018-09-27] MEDS ORDERED: methylPREDNISolone INJ 125 MG/2 ML VIAL (J2930) IV ONE (14:15)
[2018-09-27] MEDS ORDERED: REGL10TA6 PO (14:52)
[2018-09-27] MEDS ORDERED: KETO10TAB PO (14:52)
[2018-09-27] MEDS ORDERED: ZOFR4TAB14 PO (14:52)
[2018-09-27] MEDS ORDERED: MORPHINE 4 MG/ML 1ML VIAL/SYRINGE (J2270) IV ONE (15:00)
[2018-09-27 16:39] VITALS: BP 109/67
== END 2018-09-27 16:44 | disposition home or self-care (01) ==
LOC: M ED 12:27
DX: R51 Headache (principal); R11.0 Nausea; G47.00 Insomnia, unspecified; G47.33 Obstructive sleep apnea (adult) (pediatric); K58.9 Irritable bowel syndrome, unspecified; Z96.89 Presence of other specified functional implants; Z87.440 Personal history of urinary (tract) infections; F41.9 Anxiety disorder, unspecified; F32.9 Major depressive disorder, single episode, unspecified; F43.10 Post-traumatic stress disorder, unspecified
CPT/HCPCS: 70450; 80053; 85025; 96374; 96375; 99284; J1200; J1885; J2270; J2405; J2765; J2930

== ENCOUNTER 2018-10-12 10:49 | Emergency (ER) | payer OTHER ==
[~2018-10-12] VITALS: Ht 157.5 cm; Wt 50.0 kg
[~2018-10-12 10:49] MED LIST changes: +ESTR1TAB; +FLUO20CA19; +KETO10TAB PO; +LAMO25TA4; +REGL10TA6 PO; +ZOFR4TAB14 PO
[2018-10-12] MEDS ORDERED: KETOROLAC 30 MG/ML VIAL (J1885) IV ONE (11:30)
[2018-10-12] MEDS ORDERED: METOCLOPRAMIDE INJ 10MG/2ML VIAL (J2765) IV ONE (11:30)
[2018-10-12] MEDS ORDERED: NS 1,000 ML IV ONE (11:30)
[2018-10-12] MEDS ORDERED: diphenhydrAMINE INJ 50MG/ML VIAL (J1200) IV ONE (11:30)
[2018-10-12 11:38] LABS: BASO # 0.1 10^3/uL (0.0-0.2); BASO % 0.5 % (0.0-1.0); EOS # 0.1 10^3/uL (0.0-0.50); HEMATOCRIT 38.6 % (36.0-47.0); HEMOGLOBIN 12.9 g/dl (12.0-15.5); LYMPH # 2.3 10^3/uL (1.5-4.5); LYMPH % 24.4 % (24.0-44.0); MEAN CORPUSCULAR HEMOGLOBIN 28.8 pg (27.0-33.0); MEAN CORPUSCULAR HGB CONC 33.4 g/dl (32.0-36.5); MEAN CORPUSCULAR VOLUME 86.2 fl (80.0-96.0); MONO # 0.4 10^3/uL (0.0-0.8); MONO % 4.1 % (0.0-5.0); NEUTROPHILS # 6.5 10^3/uL (1.8-7.7); NEUTROPHILS % 69.8 % (36.0-66.0); PLATELET COUNT, AUTOMATED 255 10^3/uL (150-450); RED BLOOD COUNT 4.48 10^6/uL (4.00-5.40); WHITE BLOOD COUNT 9.4 10^3/uL (4.0-10.0)
[2018-10-12 12:02] LABS: ERYTHROCYTE SEDIMENTATION RATE 8 mm/hr (0-20)
[2018-10-12 12:07] LABS: ALBUMIN 3.3 GM/DL (3.2-5.2); ALT/SGPT 22 U/L (12-78); BILIRUBIN,DIRECT 0.1 MG/DL (0.0-0.2); BILIRUBIN,TOTAL 0.5 MG/DL (0.2-1.0); BLOOD UREA NITROGEN 16 MG/DL (7-18); C REACTIVE PROTEIN QUANTITATIV < 0.30 MG/DL (0.00-0.30); CALCIUM LEVEL 8.4 MG/DL (8.5-10.1); CARBON DIOXIDE LEVEL 23 MEQ/L (21-32); CHLORIDE LEVEL 106 MEQ/L (98-107); CREATININE FOR GFR 0.56 MG/DL (0.55-1.30); GLOMERULAR FILTRATION RATE > 60.0 (>58); GLUCOSE, FASTING 76 MG/DL (70-100); SODIUM LEVEL 139 MEQ/L (136-145); TOTAL PROTEIN 6.4 GM/DL (6.4-8.2)
[2018-10-12] MEDS ORDERED: methylPREDNISolone INJ 125 MG/2 ML VIAL (J2930) IV ONE (12:45)
[2018-10-12] MEDS ORDERED: MORPHINE 4 MG/ML 1ML VIAL/SYRINGE (J2270) IV ONE (13:15)
[2018-10-12] MEDS ORDERED: SUMAtriptan SUCCINATE 6 MG/0.5 ML VIAL SC ONE (14:00)
--- NOTE | 2018-10-12 16:38 | REP ---
MRI brain without contrast: History: Headache. Generalized. Different than usual. . Comparison study: CT study September 27, 2018. Technique: Axial and sagittal imaging planes are utilized for T1 and T2-weighted scans. Sequences include spin-echo, fast spin echo, FLAIR, and diffusion weighted sequences. MRI findings: No bony calvarial lesion is seen. Craniocervical junction and upper cervical cord are normal in appearance. There is no MR evidence of significant paranasal sinus disease. No intraorbital abnormality is seen. The lateral, third, and fourth ventricles are normal in size and position. Wilson-white differentiation pattern is intact above and below the tentorium. There is no evidence of intracranial hemorrhage. No mass, infarction, extra-axial fluid collection or midline shift is seen. No abnormal white matter lesion is seen. Impression: Negative noncontrast brain MRI study. Electronically Signed by Ambrocio Landeros MD 10/12/2018 04:30 P
[2018-10-12] MEDS ORDERED: MAG SULF 1GM/100ML (MAG RUN) 1 GM in APPROPRIATE DILUENT 1 EA IV ONE (17:00)
[2018-10-12] MEDS ORDERED: VALPROATE SOD INJ 1,000 MG in D5W 50 ML IV ONE (17:00)
[2018-10-12 20:01] VITALS: BP 100/56
[2018-10-15 00:09] LABS: Lyme Disease IgG/IgM Antibodie <0.91 ISR (0.00-0.90); Lyme Disease IgM Ab Quantitati <0.80 index (0.00-0.79)
== END 2018-10-12 20:02 | disposition home or self-care (01) ==
LOC: M ED 10:49
DX: G43.911 Migraine, unspecified, intractable, with status migrainosus (principal); Z88.8 Allergy status to other drugs, medicaments and biological substances; Z91.040 Latex allergy status; Z79.899 Other long term (current) drug therapy
CPT/HCPCS: 70551; 80048; 80076; 85025; 85652; 86140; 86617; 96361; 96365; 96366; 96368; 96375; 99284; J1200; J1885; J2270; J2765; J2930; J3475

== ENCOUNTER → 2020-02-22 | Outpatient (REF) | payer OTHER ==
[~2020-02-22] MED LIST changes: -FLUO20CA19; +FLUO20CA22; +OMEP1CAP73 PO; -OMEP20CA3 PO; -TRAZ-163 PO; +TRAZ-257 PO; +TRAZ1TAB10 PO; -TRAZO50TA PO; +ZONI100C17 PO; -ZONI100C2 PO
== END ==
LOC: M WUC 10:26
PROVIDERS: ATTEND Physician Assistant
DX: N39.0 Urinary tract infection, site not specified (principal)

== ENCOUNTER 2020-06-13 12:02 | Emergency (ER) | payer MEDICARE, MEDICAID ==
[~2020-06-13] VITALS: Ht 157.5 cm; Wt 53.4 kg
--- NOTE | 2020-06-13 13:40 | REPVR ---
PROCEDURE INFORMATION: Exam: CT Lumbar Spine Without Contrast Exam date and time: 06/13/2020 1:16 PM Age: 44 years old Clinical indication: Low back pain; Additional info: Severe low back pain, felt pop when bending TECHNIQUE: Imaging protocol: Computed tomography images of the lumbar spine without contrast. Radiation optimization: All CT scans at this facility use at least one of these dose optimization techniques: automated exposure control; mA and/or kV adjustment per patient size (includes targeted exams where dose is matched to clinical indication); or iterative reconstruction. COMPARISON: No relevant prior studies available. FINDINGS: Vertebrae: There is no acute fracture. There is a small sclerotic focus in right side L2 vertebral body which is likely a bone island. L1-L2 appears unremarkable. L2-L3 shows mild disc bulge without spinal stenosis or neural foraminal narrowing. L3-L4 appears unremarkable. L4-L5 shows mild generalized disc bulge, thickening of ligamentum flavum, and degenerative change. There is likely mild canal narrowing. No significant neural foraminal narrowing. L5-S1 shows a broad-based central and left protrusion which appears to compress and posteriorly displace the left S1 nerve root and correlate clinically. This extends from the right paracentral region through the left subarticular recess and measures approximately 22.8 mm transverse dimension x 8.7 mm anterior-posterior dimension. This shows minimal calcification at the posterior margin of the disc. There are asymmetric right posterior osteophytes extending into the neural foramen causing mild neural foraminal narrowing. There is disc height loss greater to the right. No significant left neural foraminal narrowing. Discs/Spinal canal/Neural foramina: See "Vertebrae" finding. Gallbladder and bile ducts: The gallbladder is surgically absent. Kidneys and ureters: There is approximately 2 mm nonobstructive stone in lower right kidney. No hydronephrosis. Appendix: The appendix is well seen and appears normal in size, without surrounding inflammatory changes. Soft tissues: Unremarkable. IMPRESSION: 1. No acute fracture. 2. L5-S1 shows left disc protrusion which appears to compress the exiting S1 nerve root. Electronically signed by: Maranda Chavez On 06/13/2020 13:40:13 PM
[2020-06-13] MEDS ORDERED: ROBA750T4 PO (14:19)
[2020-06-13 14:24] VITALS: BP 121/70
--- NOTE | 2020-06-17 09:23 | ED PDOC ---
Post-Departure Follow-Up radiology report faxed to Shari Altamirano MD Jun 17, 2020 09:23
== END 2020-06-13 14:43 | disposition home or self-care (01) ==
LOC: M ED 12:02
DX: M54.42 Lumbago with sciatica, left side (principal); M51.27 Other intervertebral disc displacement, lumbosacral region; M54.17 Radiculopathy, lumbosacral region; X50.1XXA Overexertion from prolonged static or awkward postures, initial encounter; Y92.098 Other place in other non-institutional residence as the place of occurrence of the external cause; G43.909 Migraine, unspecified, not intractable, without status migrainosus; G47.00 Insomnia, unspecified; Z87.19 Personal history of other diseases of the digestive system

== ENCOUNTER → 2020-08-01 | Outpatient (CLI) | payer MEDICARE, MEDICAID ==
[~2020-08-01] MED LIST changes: +ROBA750T4 PO
--- NOTE | 2020-08-02 23:40 | ECWPNPC ---
PATIENT NAME: ARMIN READ : 1975 GENDER: FEMALE VISIT DATE: 08/01/2020 DISCHARGE DATE: 08/01/20 0945 VISIT LOCKED DATE TIME: PHYSICIAN: JOSSELIN CONNER RESOURCE: JOSSELIN CONNER REASON FOR APPOINTMENT 1. SCIATICA HISTORY OF PRESENT ILLNESS GENERAL: 45-YEAR-OLD FEMALE IN FOR INITIAL PAIN CONSULT. 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 SHE DENIES HISTORY OF TRAUMA. SHE IS CURRENTLY TAKING TIZANIDINE, MELOXICAM, DULOXETINE, AND LYRICA TO HELP WITH HER PAIN. SHE ADMITS THAT SHE HAS NOT FOUND MEDICATION THAT HAS BEEN HELPFUL OF YET. SHE DENIES HISTORY OF SPINAL INJECTIONS FOR THIS PROBLEM. FALL RISK SCREENING: SCREENING :ONE FALL WITHOUT INJURY IN THE PAST YEAR 08/01/2020 PATIENT ADMITS TO FALLING DOWN OUTSIDE THIS MORNING FROM HER LEFT. LEG GIVING OUT LANDED ON HER TAILBONE. PT STATES SHE DID NOT INJURE HERSELF AND DID NOT SEEK MEDICAL TREATMENT. PAIN SCREENING: PATIENT HAS A COMPLAINT OF ACUTE OR CHRONIC PAIN :YES LOCATION OF PAIN:LOW BACK, LEG(S) LEFT LEG AND LEFT FOOT INTENSITY OF PAIN (SCALE OF 1 TO 10):10 WHAT DOES YOUR PAIN FEEL LIKE:ACHING, CONTINOUS, INTERMITTENT, SHARP, STABBING, TENDER, SHOOTING DURATION:CONTINOUS, ALL DAY, RHYTHMIC PAIN IS INCREASED BY:ACTIVITIES, PROLONGED STANDING PAIN IS DECREASED BY:OTHERS NOTHING HELPS NURSING NOTE: - - -. PAIN CENTER INTAKE QUESTIONS: DO YOU HAVE A HISTORY OF MRSA? :NO DO YOU TAKE A BLOOD THINNERS? :NO DO YOU HAVE ANY BLEEDING DISORDERS? :NO ANY NEW NUMBNESS OR WEAKNESS IN YOUR LEGS OR ARMS? :YES PT STATES THAT PAIN HAS INTESIFIED ANY PACEMAKER,DEFIBRILLATOR, OR DORSAL COLUMN STIMULATOR? :NO DO YOU HAVE ANY RASHES OR OPEN SORES? :NO ARE YOU ALLERGIC TO IV DYE? :NO ARE YOU DIABETIC? :NO ANY NEW PROBLEMS WITH YOUR MEDICATIONS? :NO HAVE YOU RECEIVED A VACCINE IN THE PAST 30 DAYS? :YES IF SO WHAT VACCINE AND WHEN? FLU SHOT IN 2019 DO YOU PLAN TO RECEIVE A VACCINE IN THE NEXT 21 DAYS? :NO DO YOU NEED ANY PRESCRIPTION? :NO DO YOU TAKE ANY IMMUNOSUPPRESSIVE MEDICATIONS? :NO CURRENT MEDICATIONS TAKING ESTRADIOL 1 MG TABLET 1 TABLET ORALLY TAKING AMITRIPTYLINE HCL 10 MG TABLET 1 TABLET AT BEDTIME ORALLY ONCE A DAY TAKING DIAZEPAM 2 MG TABLET 1 TABLET NEEDED ORALLY THREE TIMES DAILY TAKING DULOXETINE HCL 20 MG CAPSULE DELAYED RELEASE PARTICLES 2 CAPSULE ORALLY DAILY TAKING LAMOTRIGINE 100 MG TABLET 1 TABLET ORALLY ONCE A DAY TAKING TIZANIDINE HCL 2 MG TABLET 2 TABLET AT BEDTIME ORALLY BEFORE BEDTIME TAKING PREGABALIN 50 MG CAPSULE 1 CAPSULE ORALLY BID NOT-TAKING PAROXETINE HCL 40 MG TABLET 1 TABLET IN THE MORNING ORALLY ONCE A DAY NOT-TAKING TRAZODONE 100 100MG TABLET ORAL NOT-TAKING ABILIFY 2 MG TABLET 1 TABLET ORALLY ONCE A DAY NOT-TAKING VYVANSE 20 MG CAPSULE 1 CAPSULE IN THE MORNING ORALLY ONCE A DAY NOT-TAKING KEFLEX 250 MG CAPSULE 1 CAPSULE ORALLY ONCE DAILY NOT-TAKING URIBEL 118 MG CAPSULE 1 CAPSULE ORALLY FOUR TIMES A DAY NEEDED NOT-TAKING ELMIRON 100 MG CAPSULE 1 CAPSULE ON AN EMPTY STOMACH ORALLY THREE TIMES A DAY NOT-TAKING MELATONIN 3 MG TABLET 2 TABLET AT BEDTIME NEEDED WITH FOOD ORALLY ONCE A DAY NOT-TAKING MINIPRESS 1 MG CAPSULE 3 CAPSULE AT BEDTIME ORALLY ONCE A DAY NOT-TAKING KEFLEX 500 MG CAPSULE 1 CAPSULE ORALLY TWICE A DAY NOT-TAKING OXYBUTYNIN CHLORIDE ER 5 MG TABLET EXTENDED RELEASE 24 HOUR 1 TABLET ORALLY ONCE A DAY NOT-TAKING LEVAQUIN 500 MG TABLET 1 TABLET ORALLY ONCE A DAY NOT-TAKING BACTRIM DS 800-160 MG TABLET 1 TABLET ORALLY TWICE A DAY NOT-TAKING KEFLEX 500 MG CAPSULE 1 CAPSULE ORALLY TWICE A DAY NOT-TAKING PYRIDIUM 200 MG TABLET 1 TABLET AFTER MEALS ORALLY THREE TIMES A DAY MEDICATION LIST REVIEWED AND RECONCILED WITH THE PATIENT PAST MEDICAL HISTORY IC ANXIETY DEPRESSION IBS ENDOMETRIOSIS ALLERGIES MACROBID: HIVES - ALLERGY PREMARIN: HIVES - ALLERGY SURGICAL HISTORY HYSTERECTOMY 2009 TONSILLECTOMY LAPROSCOPIC SURGERY HYDRODISTENTION FAMILY HISTORY FATHER: 72 YRS, COPD, DIAGNOSED WITH UNSPECIFIED HEART DISEASE MOTHER: 72 YRS, COPD SIBLINGS: 1 SISTER DUE TO ACCIDENT DAUGHTER(S): ALIVE 4 BROTHER(S) , 4 SISTER(S) . 3DAUGHTER(S) - HEALTHY. NO KNOWN FAMILY HISTORY OF ANY UROLOGICALLY RELATED DISEASES/CANCERS. SOCIAL HISTORY GENERAL: TOBACCO USE ARE YOU A:NONSMOKER LATEX QUESTIONNAIRE LATEX ALLERGY : HAVE YOU EVER DEVELOPED ANY TYPE OF REACTION AFTER HANDLING LATEX PRODUCTS SUCH RUBBER GLOVES, CONDOMS, DIAPHRAGMS, BALLOONS, SOCKS, OR UNDERWEAR?YES - PLEASE INDICATE : ANY LATEX PRODUCTS LATEX ALLERGY : HAVE YOU EVER DEVELOPED ANY TYPE OF REACTION DURING OR AFTER DENTAL APPOINTMENT, VAGINAL/RECTAL EXAMINATION, SURGICAL PROCEDURE, OR ANY OTHER EXPOSURE?NO LATEX RISK : HAVE YOU EVER HAD ANY DIFFICULTY BREATHING OR HIVES AFTER EATING OR HANDLING ANY FRUITS, OR VEGETABLES; SUCH KIWI, BANANAS, STONE FRUITS, OR CHESTNUTSNO LATEX RISK : DO YOU HAVE A PREVIOUS PERSONAL HISTORY OF MORE THAN NINE SURGERIES, SPINA BIFIDA, OR REPEATED CATHERIZATIONS? NO LATEX RISK : ARE YOU FREQUENTLY EXPOSED TO LATEX PRODUCTS IN YOUR OCCUPATION?NO DATE ASKED : 07/29/2020 ALCOHOL SCREENING POINTS: 1, INTERPRETATION: NEGATIVE. RECREATIONAL DRUG USE DRUG USE?NO CAFFEINE CAFFEINE USE?YES 2 CUPS/DAY SEXUAL HX HAD SEX IN THE LAST 12 MONTHS (VAGINAL, ORAL, OR ANAL)?: YES, WITH: MEN ONLY, USE PROTECTION?: NO, HAVE YOU EVER HAD AN STD?: YES, CHLAMYDIA?: YES. ORTHODOX NO ADVENT BELIEFS THAT WOULD IMPACT HEALTH CARE. LANGUAGE SLOVENIAN. 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 DIET: REGULAR. EXERCISE: NO REGULAR EXERCISE. MARITAL STATUS: .. PAIN CLINIC PFS, CLERGY, PUBLIC HEALTH REFERRALS HAS THE PATIENT BEEN EDUCATED REGARDING HIS/HER PLAN OF CARE?YES HAS THE PATIENT BEEN EDUCATED REGARDING PAIN, THE RISK FOR PAIN, THE IMPORTANCE OF EFFECTIVE PAIN MANAGEMENT, AND THE PAIN ASSESSMENT PROCESS?YES ADVANCE DIRECTIVE ADVANCE DIRECTIVE DISCUSSED WITH PATIENT:YES PT STATES THAT SHE DOES NOT HAVE HCP AND DECLINES INFORMATION AT THIS TIME HOSPITALIZATION/MAJOR DIAGNOSTIC PROCEDURE MENTAL HEALTH X 6 DAYS 04/11/16 REVIEW OF SYSTEMS CONSTITUTIONAL: ANY RECENT FEVER NO . CHILLS NO . WEIGHT CHANGE OF UNKNOWN REASONS NO . MUSCULOSKELETAL: ANY UNUSUAL JOINT PAIN OR SWELLING NOT MENTIONED NO . SYSTEMIC LUPUS NO . ANY NEUROMUSCULAR DISORDER NOT MENTIONED NO . LYME DISEASE NO . GASTROENTEROLOGY: ANY NEW CHANGE IN BOWEL CONTROL? NO . HISTORY OF LIVER DISORDER NOT MENTIONED NO . HISTORY OF UNUSUAL ABDOMINAL PAIN OR CRAMPING NOT MENTIONED NO . NO CONSTIPATION. GENITOURINARY: ANY NEW CHANGE IN BLADDER CONTROL? NO . ANY RENAL/KIDNEY CONDITON NOT MENTIONED NO . NEUROLOGY: HISTORY OF TBI NOT MENTIONED NO . OTHER NEW NUMBNESS OR PAIN PATTERNS NOT MENTIONED NO . NEW ONSET DIZZINESS OR NEUROLOGICAL CHANGES NOT MENTIONED NO . HISTORY OF SEVERE HEADACHES NOT MENTIONED NO . HISTORY OF STROKE OR NEUROLOGICAL DISORDER NOT MENTIONED NO . CARDIOLOGY: HEART SURGERY NO . CONGESTIVE HEART FAILURE/FLUID OVERLOAD NOT MENTIONED NO . HISTORY OF CHEST PAIN,IRREGULAR HEART BEAT NOT MENTIONED NO . RESPIRATORY: SHORTNESS OF BREATH ON EXERTION, WHEEZES, UNUSUAL COUGH NOT MENTIONED NO . ENDOCRINOLOGY: ADRENAL GLAND OR THYROID DISORDERS NOT MENTIONED NO . UNUSUAL URINATION, DIZZINESS OR LETHARGY NOT MENTIONED NO . VITAL SIGNS WT 128 LBS, HT 5'2", BMI 23.41 INDEX, BP 114/58 MM HG, HR 98 /MIN, RR 18 /MIN, TEMP 97.4 F, OXYGEN SAT % 98%, SAFE IN ENV? (Y/N) YES, NA INITIALS SC 08:37, REVIEWED BY: DM. EXAMINATION GENERAL EXAMINATION: GENERALNO ACUTE DISTRESS, WELL NOURISHED AND HYDRATED. PSYCHAPPROPRIATE MOOD AND AFFECT . LUNGS:CLEAR TO AUSCULTATION BILATERALLY, NO WHEEZES, RHONCHI, RALES. HEART:NO MURMURS, REGULAR RATE AND RHYTHM. BACK:POINT TENDER ALONG LUMBAR SPINE, SURROUNDING SKIN SHOWS NO ERYTHEMA, ECCHYMOSIS, INCREASED WARMTH, AND/OR SKIN ERUPTIONS NOTED. POSITIVE MODIFIED SLR LEFT SIDE . MUSCULOSKELETAL:NOTABLE WEAKNESS OF THE LEFT LOWER EXTREMITY, RIGHT LOWER EXTREMITY WITHIN NORMAL LIMITS . ASSESSMENTS INTERVERTEBRAL DISC DISORDER WITH RADICULOPATHY OF LUMBOSACRAL REGION - M51.17 (PRIMARY) TREATMENT INTERVERTEBRAL DISC DISORDER WITH RADICULOPATHY OF LUMBOSACRAL REGION NOTES: 45-YEAR-OLD FEMALE IN FOR INITIAL PAIN CONSULT. GIVEN PRESENTING SYMPTOMS AND RESULTS OF PHYSICAL EXAMINATION RECOMMENDED LESI L5-S1 WITH POSTPROCEDURAL FOLLOW-UP. FURTHER RECOMMENDED INCREASING LYRICA 75 MG TWICE A DAY AND STARTING DICLOFENAC SODIUM 50 MG 3 TIMES A DAY. PATIENT HAS EXPRESSED UNDERSTANDING OF AND WAS IN AGREEMENT WITH TREATMENT PLAN. GIVEN TIME TO ASK QUESTIONS AND EXPRESS CONCERNS. , ISTOP REGISTRY REVIEWED AND DEMONSTRATES COMPLLIANCE. (REF # [id number]). CLINICAL NOTES: DISCUSSED PRE PROCEDURE INSTRUCTIONS, PATIENT CARE PLAN, AND TEACHING FOR: LUMBAR EPIDURAL STEROID INJECTION, PATIENT VERBALIZES UNDERSTANDING. . OTHERS INCREASE PREGABALIN CAPSULE, 75 MG, 1 CAPSULE, ORALLY, BID, 30 DAYS, 60 CAPSULE START DICLOFENAC SODIUM TABLET DELAYED RELEASE, 50 MG, 1 TABLET, ORALLY, THREE TIMES DAILY, 30 DAY(S), 90 PROCEDURE CODES FA211 ESTABILISHED PATIENT [facility] CHARGE DISPOSITION & COMMUNICATION FOLLOW UP POSTPROCEDURE (REASON: LESI L5-S1) ELECTRONICALLY SIGNED BY MARIA GUADALUPE BARR ON 08/02/2020 AT 08:32 AM EST DISCLAIMER : THIS IS A VISIT SUMMARY EXTRACTED FROM THE [employer] CHART. IT IS NOT A COPY OF THE [employer] PROGRESS NOTE. YOLYD
== END ==
LOC: M PAIN 08:30
PROVIDERS: ATTEND Family Medicine
DX: M51.17 Intervertebral disc disorders with radiculopathy, lumbosacral region (principal); F41.9 Anxiety disorder, unspecified; F32.9 Major depressive disorder, single episode, unspecified; K58.9 Irritable bowel syndrome, unspecified; Z79.899 Other long term (current) drug therapy; Z88.1 Allergy status to other antibiotic agents; Z88.8 Allergy status to other drugs, medicaments and biological substances

== ENCOUNTER → 2020-08-09 | Outpatient (CLI) | payer OTHER, MEDICAID | LOC: M LABSMTC 09:50 | PROVIDERS: ATTEND Anesthesiology | DX: Z20.828 Contact with and (suspected) exposure to other viral communicable diseases (principal) ==

== ENCOUNTER → 2020-08-10 | Outpatient (CLI) | payer OTHER, MEDICAID ==
[~2020-08-10] MED LIST changes: +ISOVUE-M 300 61% 15ML VIAL As Ordered ONE; +LIDOCAINE 1% SDV 30ML VIAL As Ordered ONE; +NORCO, ANEXSIA 5/325MG TABLET (HYDROcodone/ACETAMINOPHEN) As Ordered ONE; +diazePAM 5 MG TAB As Ordered ONE; +methylPREDNISolone SUSP 40MG/ML 1ML VIAL (DEPO MEDROL) As Ordered ONE
--- NOTE | 2020-08-10 15:38 | REP ---
INDICATION: PAIN. COMPARISON: None. TECHNIQUE: Two views from C-arm fluoroscopy provided to the pain clinic for lumbar epidural steroid injection FINDINGS: Initial image shows a needle just to the left of midline at the L5-S1 level. 2nd image shows epidural contrast adjacent. Fluoroscopy time: 8 seconds. IMPRESSION: Status post L5-S1 epidural steroid injection. <Electronically signed by Jovon Ibrahim > 08/10/20 1531
--- NOTE | 2020-08-15 23:57 | ECWPNPC ---
PATIENT NAME: ARMIN READ : 1975 GENDER: FEMALE VISIT DATE: 08/10/2020 DISCHARGE DATE: 08/10/201534 VISIT LOCKED DATE TIME: PHYSICIAN: STORMY CHRISTENSEN MD RESOURCE: STORMY CHRISTENSEN MD REASON FOR APPOINTMENT 1. LESI L5-S1 HISTORY OF PRESENT ILLNESS GENERAL: -. FALL RISK SCREENING: SCREENING :NO FALLS REPORTED IN THE LAST YEAR PAIN SCREENING: PATIENT HAS A COMPLAINT OF ACUTE OR CHRONIC PAIN :YES LOCATION OF PAIN:LOW BACK, LEFT HIP, LEG(S) INTENSITY OF PAIN (SCALE OF 1 TO 10):10 WHAT DOES YOUR PAIN FEEL LIKE:ACHING, BURNING, CONTINOUS, SHARP, STABBING, TENDER, THROBBING, SORE, SHOOTING DURATION:CONTINOUS, CONSTANT PAIN IS INCREASED BY:OTHERS PAIN IS CONSTANT. NOTHING MAKES PAIN WORSE PER PATIENT. PAIN IS DECREASED BY:USE OF PAIN MEDICATIONS, OTHERS SOME RELIEF NURSING NOTE: -. PAIN CENTER INTAKE QUESTIONS: DO YOU HAVE A HISTORY OF MRSA? :NO DO YOU TAKE A BLOOD THINNERS? :NO DO YOU HAVE ANY BLEEDING DISORDERS? :NO ANY NEW NUMBNESS OR WEAKNESS IN YOUR LEGS OR ARMS? :NO ANY PACEMAKER,DEFIBRILLATOR, OR DORSAL COLUMN STIMULATOR? :NO DO YOU HAVE ANY RASHES OR OPEN SORES? :NO ARE YOU ALLERGIC TO IV DYE? :NO ARE YOU DIABETIC? :NO ANY NEW PROBLEMS WITH YOUR MEDICATIONS? :NO HAVE YOU RECEIVED A VACCINE IN THE PAST 30 DAYS? :NO DO YOU PLAN TO RECEIVE A VACCINE IN THE NEXT 21 DAYS? :NO DO YOU TAKE ANY IMMUNOSUPPRESSIVE MEDICATIONS? :NO ANY HISTORY OF SEIZURES? :NO ANY HISTORY OF CARDIAC ISSUES OR EVENTS? :NO DO YOU HAVE SLEEP APNEA? :NO ANY RECENT HEAD INJURY? :NO DO YOU HAVE ANY NEW INFECTIONS? :NO IS THERE A CHANCE YOU COULD BE ? :NO ARE YOU BREAST FEEDING? :NO WHEN DID YOU LAST EAT? : -08/10/20 0530 WHEN DID YOU LAST DRINK? : -08/10 1030 WHAT DID YOU LAST DRINK? : -WATER NAME OF PERSON DRIVING YOU HOME? : -JONATHAN JO DO YOU HAVE ANY OTHER QUESTIONS OR CONCERNS? : - CURRENT MEDICATIONS TAKING MELATONIN 3 MG TABLET 2 TABLET AT BEDTIME NEEDED WITH FOOD ORALLY ONCE A DAY, NOTES: NONE IN PAST WEEK TAKING KEFLEX 500 MG CAPSULE 1 CAPSULE ORALLY TWICE A DAY TAKING ESTRADIOL 1 MG TABLET 1 TABLET ORALLY , NOTES: 08/10/2030 TAKING AMITRIPTYLINE HCL 10 MG TABLET 1 TABLET AT BEDTIME ORALLY ONCE A DAY, NOTES: 08/09/202199 TAKING DIAZEPAM 2 MG TABLET 1 TABLET NEEDED ORALLY THREE TIMES DAILY, NOTES: A WEEK AGO TAKING DULOXETINE HCL 20 MG CAPSULE DELAYED RELEASE PARTICLES 2 CAPSULE ORALLY DAILY, NOTES: 08/09/20 0600 TAKING LAMOTRIGINE 100 MG TABLET 1 TABLET ORALLY ONCE A DAY, NOTES: 08/09/202199 TAKING TIZANIDINE HCL 2 MG TABLET 2 TABLET AT BEDTIME ORALLY BEFORE BEDTIME, NOTES: 08/09/202199 TAKING DICLOFENAC SODIUM 50 MG TABLET DELAYED RELEASE 1 TABLET ORALLY THREE TIMES DAILY, NOTES: 08/09/202199 TAKING PREGABALIN 75 MG CAPSULE 1 CAPSULE ORALLY BID, NOTES: 08/09/202199 TAKING AMITRIPTYLINE HCL 10 MG TABLET 1 TABLET AT BEDTIME ORALLY ONCE A DAY, NOTES: SEE ABOVE NOT-TAKING PAROXETINE HCL 40 MG TABLET 1 TABLET IN THE MORNING ORALLY ONCE A DAY NOT-TAKING TRAZODONE 100 100MG TABLET ORAL NOT-TAKING ABILIFY 2 MG TABLET 1 TABLET ORALLY ONCE A DAY NOT-TAKING VYVANSE 20 MG CAPSULE 1 CAPSULE IN THE MORNING ORALLY ONCE A DAY NOT-TAKING KEFLEX 250 MG CAPSULE 1 CAPSULE ORALLY ONCE DAILY NOT-TAKING URIBEL 118 MG CAPSULE 1 CAPSULE ORALLY FOUR TIMES A DAY NEEDED NOT-TAKING ELMIRON 100 MG CAPSULE 1 CAPSULE ON AN EMPTY STOMACH ORALLY THREE TIMES A DAY NOT-TAKING MINIPRESS 1 MG CAPSULE 3 CAPSULE AT BEDTIME ORALLY ONCE A DAY NOT-TAKING KEFLEX 500 MG CAPSULE 1 CAPSULE ORALLY TWICE A DAY NOT-TAKING OXYBUTYNIN CHLORIDE ER 5 MG TABLET EXTENDED RELEASE 24 HOUR 1 TABLET ORALLY ONCE A DAY NOT-TAKING LEVAQUIN 500 MG TABLET 1 TABLET ORALLY ONCE A DAY NOT-TAKING BACTRIM DS 800-160 MG TABLET 1 TABLET ORALLY TWICE A DAY NOT-TAKING PYRIDIUM 200 MG TABLET 1 TABLET AFTER MEALS ORALLY THREE TIMES A DAY MEDICATION LIST REVIEWED AND RECONCILED WITH THE PATIENT PAST MEDICAL HISTORY IC ANXIETY DEPRESSION IBS ENDOMETRIOSIS ALLERGIES MACROBID: HIVES - ALLERGY PREMARIN: HIVES - ALLERGY LATEX: HIVES - ALLERGY SURGICAL HISTORY HYSTERECTOMY 2009 TONSILLECTOMY LAPROSCOPIC SURGERY HYDRODISTENTION CHOLECYSTECTOMY 2018 RIGHT SHOULDER RECONSTRUCTION/BICEP REPAIR 2016 FAMILY HISTORY FATHER: 72 YRS, COPD, DIAGNOSED WITH UNSPECIFIED HEART DISEASE MOTHER: 72 YRS, COPD SIBLINGS: 1 SISTER DUE TO ACCIDENT DAUGHTER(S): ALIVE 4 BROTHER(S) , 4 SISTER(S) . 3DAUGHTER(S) - HEALTHY. NO KNOWN FAMILY HISTORY OF ANY UROLOGICALLY RELATED DISEASES/CANCERS. MOTHER HAS COPD. 1 SISTER FROM MVA. SOCIAL HISTORY GENERAL: TOBACCO USE ARE YOU A:NONSMOKER LATEX QUESTIONNAIRE LATEX ALLERGY : HAVE YOU EVER DEVELOPED ANY TYPE OF REACTION AFTER HANDLING LATEX PRODUCTS SUCH RUBBER GLOVES, CONDOMS, DIAPHRAGMS, BALLOONS, SOCKS, OR UNDERWEAR?YES - PLEASE INDICATE : ANY LATEX PRODUCTS LATEX ALLERGY : HAVE YOU EVER DEVELOPED ANY TYPE OF REACTION DURING OR AFTER DENTAL APPOINTMENT, VAGINAL/RECTAL EXAMINATION, SURGICAL PROCEDURE, OR ANY OTHER EXPOSURE?NO LATEX RISK : HAVE YOU EVER HAD ANY DIFFICULTY BREATHING OR HIVES AFTER EATING OR HANDLING ANY FRUITS, OR VEGETABLES; SUCH KIWI, BANANAS, STONE FRUITS, OR CHESTNUTSNO LATEX RISK : DO YOU HAVE A PREVIOUS PERSONAL HISTORY OF MORE THAN NINE SURGERIES, SPINA BIFIDA, OR REPEATED CATHERIZATIONS? NO LATEX RISK : ARE YOU FREQUENTLY EXPOSED TO LATEX PRODUCTS IN YOUR OCCUPATION?NO DATE ASKED : 08/10/2020 ALCOHOL SCREENING POINTS: 1, INTERPRETATION: NEGATIVE. RECREATIONAL DRUG USE DRUG USE?NO HX OF OPIOD ADDICTION. NONE CURRENTLY. CAFFEINE CAFFEINE USE?YES 2 CUPS/DAY SEXUAL HX HAD SEX IN THE LAST 12 MONTHS (VAGINAL, ORAL, OR ANAL)?: YES, WITH: MEN ONLY, USE PROTECTION?: NO, HAVE YOU EVER HAD AN STD?: YES, CHLAMYDIA?: YES. PENTECOSTALISM NO TAOISM BELIEFS THAT WOULD IMPACT HEALTH CARE. LANGUAGE PORTUGUESE. 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 DIET: REGULAR. EXERCISE: NO REGULAR EXERCISE. MARITAL STATUS: .. PAIN CLINIC PFS, CLERGY, PUBLIC HEALTH REFERRALS HAS THE PATIENT BEEN EDUCATED REGARDING HIS/HER PLAN OF CARE?YES HAS THE PATIENT BEEN EDUCATED REGARDING PAIN, THE RISK FOR PAIN, THE IMPORTANCE OF EFFECTIVE PAIN MANAGEMENT, AND THE PAIN ASSESSMENT PROCESS?YES ADVANCE DIRECTIVE ADVANCE DIRECTIVE DISCUSSED WITH PATIENT:YES PT STATES THAT SHE DOES NOT HAVE HCP AND DECLINES INFORMATION AT THIS TIME HOSPITALIZATION/MAJOR DIAGNOSTIC PROCEDURE MENTAL HEALTH X 6 DAYS 04/11/16 CHILDBIRTH X 3 VITAL SIGNS WT 131.2 LBS, HT 5'2", BMI 23.99 INDEX, BP 141/62 MM HG, HR 93 /MIN, RR 18 /MIN, TEMP 97.6 F, OXYGEN SAT % 97%, SAFE IN ENV? (Y/N) YES, NA INITIALS SC 13:25, REVIEWED BY: MACKENZIE RN @ 0414. EXAMINATION GENERAL EXAMINATION: THE PATIENT IS ALERT, ORIENTED TIMES THREE AND COOPERATIVE. HEART SHOWS REGULAR RHYTHM, NO MURMURS AND NO GALLOPS. LUNGS ARE CLEAR TO AUSCULTATION. ASSESSMENTS INTERVERTEBRAL DISC DISORDERS WITH RADICULOPATHY, LUMBOSACRAL REGION - M51.17 (PRIMARY) TREATMENT INTERVERTEBRAL DISC DISORDERS WITH RADICULOPATHY, LUMBOSACRAL REGION [facility] FLUORO GUIDE SPINE INJECTION (PAIN)[id number] MEDICATION: NORCO TABLET 5MG/325MG ORALLY (HYDROCODONE/ACETAMINOPHEN)JUNIOR PARKS 08/10/2020 02:14:20 PM - GIVE 2 TABLETS ADAN ARREDONDO RN 08/10/2020 2:28:26 PM > LOT# [id number], EXP 06/2021, [facility]IFIED [facility] 08/10/2020 2:30:06 PM > ADMINISTERED 1430 [facility] 08/10/2020 3:57:37 PM > IV # 22 STARTED ON 1ST ATTEMPT BY Juan ARREDONDO RN. IV D/C'D AFTER PROCEDURE COMPLETED. SITE INTACT. MEDICATION: VALIUM TAB 10MG ORALLY (DIAZEPAM)ADAN ARREDONDO RN 08/10/2020 2:26:14 PM > LOT# [id number], EXP 01/18, VERIFIED [facility] 08/10/2020 2:30:28 PM > ADMINISTERED 1430 NOTES: DISCHARGE INSTRUCTIONS REVIEWED WITH PATIENT AND SHE VERBALIZED UNDERSTANING. IV D/C'D. SITE INTACT. . OTHERS NOTES: 08/09/2020 1452 UNABLE TO REACH FOR PRE-PROCEDURE CALL. Pat PATEL RN 08/09/2020 1631 UNABLE TO REACH PATIENT FOR PRE PROCEDURE PHONE CALL Scotty GUNTER RN. PROCEDURES PAIN NURSING RECORD PRE-PROCEDURE IV SITE LEFT HAND, IV STARTED # 22, IV STARTED BY: Antoinette ARREDONDO RN, IV ATTEMPTS 1, PRE-PROCEDURE ORAL MEDICATIONS PER MD ORDER PROCEDURE IN ROOM 1450, PHYSICIAN IN ROOM 1458, START 1500, FINISH 1508, PHYSICIAN OUT OF ROOM 1515, OUT OF ROOM 1518, STEROID DEPOMEDROL, O2 RA, ECG NORMAL SINUS, PATIENT SHIELDED YES, SAFETY STRAP YES, PREP BETADINE BY Brigida PURDY RN, DRESSING TEGADERM BY DR CHRISTENSEN LOC: 1. ALERT, ORIENTED RESP: 1. REGULAR, NO DYSPNEA COLOR: 1. PINK SKIN: 1. WARM, DRY POSITION: 1. PRONE VITALS: SEAN PURDY 08/10/2020 2:50:29 PM > 115/58 HR 84 16 95% , SEAN PURDY 08/10/2020 3:05:23 PM > , 107/56 HR 80 16 97% , SEAN PURDY 08/10/2020 3:20:23 PM > 121/70 HR 82 16 95% D/C V/S. DISCHARGE: POST PAIN 8, DRESSING SITE DRY AND INTACT, IV DISCONTINUED, SITE CLEAR, CATHETER INTACT, GAIT STEADY, TEACHING COMPLETED, PATIENT ACKNOWLEDGES UNDERSTANDING YES, PATIENT DISCHARGED AT 1535 PRE PROCEDURE DIAGNOSIS LUMBOSACRAL DISC DISORDER WITH RADICULOPATHY POST PROCEDURE DIAGNOSIS LUMBOSACRAL DISC DISORDER WITH RADICULOPATHY PROCEDURE LUMBAR EPIDURAL STEROID INJECTION UNDER FLUOROSCOPIC GUIDANCE SURGEON DR. STORMY CHRISTENSEN VALVE SEATER OPERATOR NONE ANESTHESIA LOCAL PRE PROCEDURE NOTE THE PATIENT HAS A HISTORY OF CHRONIC LOW BACK PAIN. I EVALUATED THE PATIENT AND REVIEWED THE CHART. I WENT OVER THE RISKS, ALTERNATIVES, AND BENEFITS ASSOCIATED WITH THIS PROCEDURE. I DISCUSSED THAT THE USE OF STEROIDS MAY CONTRIBUTE TO IMMUNOSUPPRESSION OF THE PATIENT'S BODY AGAINST INFECTIONS SUCH COVID-19. THE PATIENT IS AWARE OF THE POTENTIAL COMPLICATIONS ASSOCIATED WITH THIS VIRUS, INCLUDING, BUT NOT LIMITED TO, . THE PATIENT WOULD LIKE TO PROCEED AND GIVE CONSENT TO PERFORMED THE PROCEDURE. THE PATIENT DENIES UNEXPLAINABLE WEIGHT LOSS, FEVER, CHILLS, OR NEW CHANGES IN URINARY OR BOWEL CONTROL. THE PATIENT IS COVID-19 NEGATIVE DESCRIPTION OF PROCEDURE THE PATIENT WAS BROUGHT TO THE PROCEDURE ROOM AND PLACED IN THE PRONE POSITION. THE LUMBOSACRAL AREA WAS CLEANED WITH BETADINE SOLUTION AND DRAPED ASEPTICALLY. THE PROCEDURE WAS DONE UNDER STERILE CONDITIONS. A TIMEOUT WAS PERFORMED WHERE LATERALITY AND THE SITE OF THE PROCEDURE WERE CHECKED AND CONFIRMED WITH EVERYONE IN THE ROOM. UNDER FLUOROSCOPIC GUIDANCE, THE TARGET POINT WAS SELECTED AT THE INTERLAMINAR LEVEL OF L5-S1. I CONFIRMED AGAIN WITH EVERYONE IN THE ROOM THE LATERALITY OF THE TARGET. LIDOCAINE WAS USED TO NUMB THE SKIN AND THE SUBCUTANEOUS TISSUE BELOW IT. EPIDURAL TUOHY NEEDLE, 17-GAUGE, WAS ADVANCED UNDER FLUOROSCOPIC GUIDANCE AND FOLLOWING PATIENT FEEDBACK UNTIL THE EPIDURAL SPACE WAS REACHED 5 CM DEEP INTO THE SKIN BY THE LOSS OF RESISTANCE TECHNIQUE. ISOVUE-M DYE 30%, 0.25 ML, WAS INJECTED SHOWING ADEQUATE SPREAD OF THE DYE. THEN, A SOLUTION OF 3 ML OF NORMAL SALINE WITH DEPO-MEDROL 80 MG WAS INJECTED SLOWLY FOLLOWING PATIENT FEEDBACK. THE MEDICATIONS WERE VERIFIED WITH THE NURSE. THERE WAS NO EVIDENCE OF BLOOD, PARESTHESIA OR CEREBROSPINAL FLUID DURING THE PROCEDURE. THE PATIENT WAS SENT TO THE RECOVERY ROOM. THE PATIENT WAS MOVING THE EXTREMITIES AND DOING WELL. THERE WERE NO COMPLICATIONS DURING THE PROCEDURE. ESTIMATED BLOOD LOSS WAS LESS THAN 5 ML. FLUOROSCOPY TIME WAS SECONDS POST PROCEDURE NOTE THE PATIENT WILL BE SEEN IN A FOLLOW UP IN THE NEXT FEW WEEKS. I AM LOOKING FOR LONG LASTING RELIEF FOR THE PATIENT WITH THIS INTERVENTION. INSTRUCTIONS WERE GIVEN, QUESTIONS WERE ANSWERED, AND THE PATIENT EXPRESSED UNDERSTANDING AND AGREES WITH THE PLAN. I, JUNIOR PARKS, DOCUMENTED THE ABOVE INFORMATION ACTING A SCRIBE FOR DR. CHRISTENSEN. I HAVE REVIEWED THE ABOVE DOCUMENT, WRITTEN BY JUNIOR PARKS, METAL PATTERNMAKER, AND I VERIFY THAT IT IS ACCURATE PROCEDURE CODES 58861 LUMBAR/SACRAL W/ IMAGING DISPOSITION & COMMUNICATION FOLLOW UP FOLLOW UP WITH PROFESSIONAL BASS FISHERMAN (REASON: POST LESI L5-S1) ELECTRONICALLY SIGNED BY STORMY CHRISTENSEN MD, MD ON 08/15/2020 AT 02:11 PM EST DISCLAIMER : THIS IS A VISIT SUMMARY EXTRACTED FROM THE [employer] CHART. IT IS NOT A COPY OF THE [employer] PROGRESS NOTE. MURRAY
== END ==
LOC: M PAIN 13:30
PROVIDERS: ATTEND Anesthesiology
DX: M51.17 Intervertebral disc disorders with radiculopathy, lumbosacral region (principal); F41.9 Anxiety disorder, unspecified; F32.9 Major depressive disorder, single episode, unspecified; K58.9 Irritable bowel syndrome, unspecified; Z79.899 Other long term (current) drug therapy; Z88.1 Allergy status to other antibiotic agents; Z88.8 Allergy status to other drugs, medicaments and biological substances; Z91.040 Latex allergy status
CPT/HCPCS: 62323; J1030; Q9967

== ENCOUNTER → 2020-08-24 | Outpatient (CLI) | payer MEDICARE, MEDICAID, OTHER ==
[~2020-08-24] MED LIST changes: -ISOVUE-M 300 61% 15ML VIAL As Ordered ONE; -LIDOCAINE 1% SDV 30ML VIAL As Ordered ONE; -NORCO, ANEXSIA 5/325MG TABLET (HYDROcodone/ACETAMINOPHEN) As Ordered ONE; -diazePAM 5 MG TAB As Ordered ONE; -methylPREDNISolone SUSP 40MG/ML 1ML VIAL (DEPO MEDROL) As Ordered ONE
--- NOTE | 2020-08-30 06:00 | ECWPNPC ---
PATIENT NAME: ARMIN READ : 1975 GENDER: FEMALE VISIT DATE: 08/24/2020 DISCHARGE DATE: 08/24/20 1042 VISIT LOCKED DATE TIME: PHYSICIAN: JOSSELIN CONNER RESOURCE: OJSSELIN CONNER REASON FOR APPOINTMENT 1. POST LESI L5-S1 HISTORY OF PRESENT ILLNESS FALL RISK SCREENING: SCREENING :ONE FALL WITHOUT INJURY IN THE PAST YEAR PATIENT ADMITS TO FALLING DOWN OUTSIDE THIS MORNING FROM HER LEFT. LEG GIVING OUT LANDED ON HER TAILBONE. PT STATES SHE DID NOT INJURE HERSELF AND DID NOT SEEK MEDICAL TREATMENT. 45-YEAR-OLD FEMALE IN FOR POST LUMBAR EPIDURAL FOLLOW-UP. SHE FEELS THE PROCEDURE WAS VERY SUCCESSFUL RATING HER PAIN PREPROCEDURE AT A 10 OUT OF 10 AND POSTPROCEDURE AT A 0-1 OUT OF 10. SHE FURTHER STATES THE PROCEDURE CONTINUES TO HELP HER TODAY RATING HER PAIN AT A 1 OUT OF 10. SHE DESCRIBES HER PAIN ACHING PAIN. PAIN SCREENING: PATIENT HAS A COMPLAINT OF ACUTE OR CHRONIC PAIN :YES LOCATION OF PAIN:LOW BACK, LEG(S) LEFT LEG AND LEFT FOOT INTENSITY OF PAIN (SCALE OF 1 TO 10):1 WHAT DOES YOUR PAIN FEEL LIKE:ACHING DULL DURATION:CONTINOUS PAIN IS INCREASED BY:ACTIVITIES, PROLONGED STANDING PAIN IS DECREASED BY:OTHERS INJECTION NURSING NOTE: - - -. PAIN CENTER INTAKE QUESTIONS: DO YOU HAVE A HISTORY OF MRSA? :NO DO YOU TAKE A BLOOD THINNERS? :NO DO YOU HAVE ANY BLEEDING DISORDERS? :NO ANY NEW NUMBNESS OR WEAKNESS IN YOUR LEGS OR ARMS? :NO ANY PACEMAKER,DEFIBRILLATOR, OR DORSAL COLUMN STIMULATOR? :NO DO YOU HAVE ANY RASHES OR OPEN SORES? :NO ARE YOU ALLERGIC TO IV DYE? :NO ARE YOU DIABETIC? :NO ANY NEW PROBLEMS WITH YOUR MEDICATIONS? :NO HAVE YOU RECEIVED A VACCINE IN THE PAST 30 DAYS? :NO DO YOU PLAN TO RECEIVE A VACCINE IN THE NEXT 21 DAYS? :NO DO YOU NEED ANY PRESCRIPTION? :NO DO YOU TAKE ANY IMMUNOSUPPRESSIVE MEDICATIONS? :NO CURRENT MEDICATIONS TAKING ESTRADIOL 1 MG TABLET 1 TABLET ORALLY TAKING AMITRIPTYLINE HCL 10 MG TABLET 1 TABLET AT BEDTIME ORALLY ONCE A DAY TAKING DIAZEPAM 2 MG TABLET 1 TABLET NEEDED ORALLY THREE TIMES DAILY TAKING DULOXETINE HCL 20 MG CAPSULE DELAYED RELEASE PARTICLES 2 CAPSULE ORALLY DAILY TAKING LAMOTRIGINE 100 MG TABLET 1 TABLET ORALLY ONCE A DAY TAKING TIZANIDINE HCL 2 MG TABLET 2 TABLET AT BEDTIME ORALLY BEFORE BEDTIME TAKING DICLOFENAC SODIUM 50 MG TABLET DELAYED RELEASE 1 TABLET ORALLY THREE TIMES DAILY TAKING PREGABALIN 75 MG CAPSULE 1 CAPSULE ORALLY BID NOT-TAKING PAROXETINE HCL 40 MG TABLET 1 TABLET IN THE MORNING ORALLY ONCE A DAY NOT-TAKING TRAZODONE 100 100MG TABLET ORAL NOT-TAKING ABILIFY 2 MG TABLET 1 TABLET ORALLY ONCE A DAY NOT-TAKING VYVANSE 20 MG CAPSULE 1 CAPSULE IN THE MORNING ORALLY ONCE A DAY NOT-TAKING KEFLEX 250 MG CAPSULE 1 CAPSULE ORALLY ONCE DAILY NOT-TAKING URIBEL 118 MG CAPSULE 1 CAPSULE ORALLY FOUR TIMES A DAY NEEDED NOT-TAKING ELMIRON 100 MG CAPSULE 1 CAPSULE ON AN EMPTY STOMACH ORALLY THREE TIMES A DAY NOT-TAKING MINIPRESS 1 MG CAPSULE 3 CAPSULE AT BEDTIME ORALLY ONCE A DAY NOT-TAKING KEFLEX 500 MG CAPSULE 1 CAPSULE ORALLY TWICE A DAY NOT-TAKING OXYBUTYNIN CHLORIDE ER 5 MG TABLET EXTENDED RELEASE 24 HOUR 1 TABLET ORALLY ONCE A DAY NOT-TAKING LEVAQUIN 500 MG TABLET 1 TABLET ORALLY ONCE A DAY NOT-TAKING BACTRIM DS 800-160 MG TABLET 1 TABLET ORALLY TWICE A DAY NOT-TAKING PYRIDIUM 200 MG TABLET 1 TABLET AFTER MEALS ORALLY THREE TIMES A DAY NOT-TAKING MELATONIN 3 MG TABLET 2 TABLET AT BEDTIME NEEDED WITH FOOD ORALLY ONCE A DAY NOT-TAKING KEFLEX 500 MG CAPSULE 1 CAPSULE ORALLY TWICE A DAY NOT-TAKING AMITRIPTYLINE HCL 10 MG TABLET 1 TABLET AT BEDTIME ORALLY ONCE A DAY MEDICATION LIST REVIEWED AND RECONCILED WITH THE PATIENT PAST MEDICAL HISTORY IC ANXIETY DEPRESSION IBS ENDOMETRIOSIS CHRONIC PAIN ALLERGIES MACROBID: HIVES - ALLERGY PREMARIN: HIVES - ALLERGY LATEX: HIVES - ALLERGY SURGICAL HISTORY HYSTERECTOMY 2009 TONSILLECTOMY LAPROSCOPIC SURGERY HYDRODISTENTION CHOLECYSTECTOMY 2018 RIGHT SHOULDER RECONSTRUCTION/BICEP REPAIR 2016 FAMILY HISTORY FATHER: 72 YRS, COPD, DIAGNOSED WITH UNSPECIFIED HEART DISEASE MOTHER: 72 YRS, COPD SIBLINGS: 1 SISTER DUE TO ACCIDENT DAUGHTER(S): ALIVE 4 BROTHER(S) , 4 SISTER(S) . 3DAUGHTER(S) - HEALTHY. NO KNOWN FAMILY HISTORY OF ANY UROLOGICALLY RELATED DISEASES/CANCERS. MOTHER HAS COPD. 1 SISTER FROM MVA. SOCIAL HISTORY GENERAL: TOBACCO USE ARE YOU A:NONSMOKER LATEX QUESTIONNAIRE LATEX ALLERGY : HAVE YOU EVER DEVELOPED ANY TYPE OF REACTION AFTER HANDLING LATEX PRODUCTS SUCH RUBBER GLOVES, CONDOMS, DIAPHRAGMS, BALLOONS, SOCKS, OR UNDERWEAR?YES - PLEASE INDICATE : ANY LATEX PRODUCTS LATEX ALLERGY : HAVE YOU EVER DEVELOPED ANY TYPE OF REACTION DURING OR AFTER DENTAL APPOINTMENT, VAGINAL/RECTAL EXAMINATION, SURGICAL PROCEDURE, OR ANY OTHER EXPOSURE?NO LATEX RISK : HAVE YOU EVER HAD ANY DIFFICULTY BREATHING OR HIVES AFTER EATING OR HANDLING ANY FRUITS, OR VEGETABLES; SUCH KIWI, BANANAS, STONE FRUITS, OR CHESTNUTSNO LATEX RISK : DO YOU HAVE A PREVIOUS PERSONAL HISTORY OF MORE THAN NINE SURGERIES, SPINA BIFIDA, OR REPEATED CATHERIZATIONS? NO LATEX RISK : ARE YOU FREQUENTLY EXPOSED TO LATEX PRODUCTS IN YOUR OCCUPATION?NO DATE ASKED : 08/10/2020 ALCOHOL SCREENING POINTS: 1, INTERPRETATION: NEGATIVE. RECREATIONAL DRUG USE DRUG USE?NO HX OF OPIOD ADDICTION. NONE CURRENTLY. CAFFEINE CAFFEINE USE?YES 2 CUPS/DAY SEXUAL HX HAD SEX IN THE LAST 12 MONTHS (VAGINAL, ORAL, OR ANAL)?: YES, WITH: MEN ONLY, USE PROTECTION?: NO, HAVE YOU EVER HAD AN STD?: YES, CHLAMYDIA?: YES. LATTER DAY NO ALEVISM BELIEFS THAT WOULD IMPACT HEALTH CARE. LANGUAGE DIVEHI. 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 DIET: REGULAR. EXERCISE: NO REGULAR EXERCISE. MARITAL STATUS: .. PAIN CLINIC PFS, CLERGY, PUBLIC HEALTH REFERRALS HAS THE PATIENT BEEN EDUCATED REGARDING HIS/HER PLAN OF CARE?YES HAS THE PATIENT BEEN EDUCATED REGARDING PAIN, THE RISK FOR PAIN, THE IMPORTANCE OF EFFECTIVE PAIN MANAGEMENT, AND THE PAIN ASSESSMENT PROCESS?YES ADVANCE DIRECTIVE ADVANCE DIRECTIVE DISCUSSED WITH PATIENT:YES HCP- [facility] HOSPITALIZATION/MAJOR DIAGNOSTIC PROCEDURE MENTAL HEALTH X 6 DAYS 04/11/16 CHILDBIRTH X 3 REVIEW OF SYSTEMS CONSTITUTIONAL: ANY RECENT FEVER NO . CHILLS NO . WEIGHT CHANGE OF UNKNOWN REASONS NO . GASTROENTEROLOGY: NEW UNEXPLAINABLE CHANGES IN BOWEL CONTROL NO . CONSTIPATION NO . GENITOURINARY: ANY NEW CHANGE IN BLADDER CONTROL? NO . NEUROLOGY: NEW ONSET DIZZINESS OR NEUROLOGICAL CHANGES NOT MENTIONED NO . NEW NUMBNESS OR PAIN PATTERNS NOT MENTIONED AND PERTINENT TO TODAY'S VISIT NO . CARDIOLOGY: NEW CHEST PRESSURE NO . NEW CHEST PAIN NO . RESPIRATORY: UNEXPLAINABLE COUGH NO . NEW SHORTNESS OF BREATH NO . VITAL SIGNS WT 128.8 LBS, HT 5'2", BMI 23.56 INDEX, BP 114/71 MM HG, HR 83 /MIN, RR 18 /MIN, TEMP 96.7 F, OXYGEN SAT % 98%, SAFE IN ENV? (Y/N) Y, NA INITIALS IN 10:06, REVIEWED BY: JSJ. IVON RN. EXAMINATION GENERAL EXAMINATION: GENERALNO ACUTE DISTRESS, WELL NOURISHED AND HYDRATED. PSYCHAPPROPRIATE MOOD AND AFFECT . LUNGS:CLEAR TO AUSCULTATION BILATERALLY, NO WHEEZES, RHONCHI, RALES. HEART:NO MURMURS, REGULAR RATE AND RHYTHM. ASSESSMENTS OTHER CHRONIC PAIN - G89.29 (PRIMARY) INTERVERTEBRAL DISC DISORDERS WITH RADICULOPATHY, LUMBOSACRAL REGION - M51.17 (PRIMARY) TREATMENT OTHER CHRONIC PAIN PAIN PROCEDURE LOGDATE OF ARBQQREID24/11/20PROCEDURE:LUMBAR EPIDURAL STEROID INJECTION L5-P3WBYTLQ OF PRE SEDATEVALIUM 10 MG & NORCO 5-325 MGRESULT:PRE 07/09 POST 0-10/09 NOTES: 45-YEAR-OLD FEMALE IN FOR POST LUMBAR EPIDURAL FOLLOW-UP. GIVEN PRESENTING SYMPTOMS RECOMMEND FOLLOW-UP IN 2 MONTHS. PATIENT HAS EXPRESSED UNDERSTANDING OF AND WAS IN AGREEMENT WITH TREATMENT PLAN. GIVEN TIME TO ASK QUESTIONS AND EXPRESS CONCERNS. INTERVERTEBRAL DISC DISORDERS WITH RADICULOPATHY, LUMBOSACRAL REGION NOTES: DISCHARGE INSTRUCTIONS REVIEWED WITH PATIENT AND SHE VERBALIZED UNDERSTANING. IV D/C'D. SITE INTACT. . PROCEDURE CODES FA211 ESTABILISHED PATIENT [facility] CHARGE DISPOSITION & COMMUNICATION FOLLOW UP 2 MONTHS (REASON: LOW BACK PAIN) ELECTRONICALLY SIGNED BY MARIA GUADALUPE BARR ON 08/29/2020 AT 08:37 AM EST DISCLAIMER : THIS IS A VISIT SUMMARY EXTRACTED FROM THE [employer] CHART. IT IS NOT A COPY OF THE [employer] PROGRESS NOTE. MURRAY
== END ==
LOC: M PAIN 10:00
PROVIDERS: ATTEND Family Medicine
DX: M51.17 Intervertebral disc disorders with radiculopathy, lumbosacral region (principal); G89.29 Other chronic pain; Z86.59 Personal history of other mental and behavioral disorders; Z88.1 Allergy status to other antibiotic agents; Z88.8 Allergy status to other drugs, medicaments and biological substances; Z91.040 Latex allergy status; Z79.899 Other long term (current) drug therapy

== ENCOUNTER → 2020-10-24 | Outpatient (CLI) | payer MEDICARE, MEDICAID ==
--- NOTE | 2020-10-26 04:10 | ECWPNPC ---
PATIENT NAME: ARMIN READ : 1975 GENDER: FEMALE VISIT DATE: 10/24/2020 DISCHARGE DATE: 10/24/20 1139 VISIT LOCKED DATE TIME: PHYSICIAN: JOSSELIN CONNER RESOURCE: JOSSELIN CONNER REASON FOR APPOINTMENT 1. 2 MONTHS LOW BACK PAIN HISTORY OF PRESENT ILLNESS DEPRESSION SCREENIN OLD FEMALE FOR CHRONIC PAIN FOLLOW-UP. SHE RATES HER PAIN CURRENTLY AT AN 8 OUT OF 10 AND DESCRIBES IT ACHING, CONTINUOUS, AND SHOOTING. PATIENT HAS HAD LUMBAR EPIDURAL STEROID INJECTIONS IN THE PAST WITH GOOD RESULTS AND WE WILL DISCUSS REPEAT PROCEDURES TODAY. PHQ-2 (2015 EDITION) LITTLE INTEREST OR PLEASURE IN DOING THINGS?NOT AT ALL FEELING DOWN, DEPRESSED, OR HOPELESS?NOT AT ALL TOTAL SCORE0 GENERAL: -. FALL RISK SCREENING: SCREENING :NO FALLS REPORTED IN THE LAST YEAR PAIN SCREENING: PATIENT HAS A COMPLAINT OF ACUTE OR CHRONIC PAIN :YES LOCATION OF PAIN:LOW BACK INTENSITY OF PAIN (SCALE OF 1 TO 10):8 WHAT DOES YOUR PAIN FEEL LIKE:ACHING, CONTINOUS, SHOOTING DURATION:CONTINOUS, AWAKENS FROM SLEEP PAIN IS INCREASED BY:OTHERS CANNOT PINPOINT REASONS, STATES EVERYTHING PAIN IS DECREASED BY: REPORTS ALBA WORKED WELL. USES HEAT AT TIMES BUT STATES SHE HAS NO RELIEF AT THIS TIME NURSING NOTE: -. PAIN CENTER INTAKE QUESTIONS: DO YOU HAVE A HISTORY OF MRSA? :NO DO YOU TAKE A BLOOD THINNERS? :NO DO YOU HAVE ANY BLEEDING DISORDERS? :NO ANY NEW NUMBNESS OR WEAKNESS IN YOUR LEGS OR ARMS? :YES NUMBNESS & TINGLING RETUNING AFTER ALBA WORE OFF ANY PACEMAKER,DEFIBRILLATOR, OR DORSAL COLUMN STIMULATOR? :NO DO YOU HAVE ANY RASHES OR OPEN SORES? :NO ARE YOU ALLERGIC TO IV DYE? :NO ARE YOU DIABETIC? :NO ANY NEW PROBLEMS WITH YOUR MEDICATIONS? :NO HAVE YOU RECEIVED A VACCINE IN THE PAST 30 DAYS? :NO DO YOU PLAN TO RECEIVE A VACCINE IN THE NEXT 21 DAYS? :NO DO YOU NEED ANY PRESCRIPTION? :NO DO YOU TAKE ANY IMMUNOSUPPRESSIVE MEDICATIONS? :NO CURRENT MEDICATIONS TAKING ESTRADIOL 1 MG TABLET 1 TABLET ORALLY TAKING AMITRIPTYLINE HCL 10 MG TABLET 1 TABLET AT BEDTIME ORALLY ONCE A DAY TAKING LAMOTRIGINE 100 MG TABLET 1 TABLET ORALLY ONCE A DAY NOT-TAKING PAROXETINE HCL 40 MG TABLET 1 TABLET IN THE MORNING ORALLY ONCE A DAY NOT-TAKING TRAZODONE 100 100MG TABLET ORAL NOT-TAKING ABILIFY 2 MG TABLET 1 TABLET ORALLY ONCE A DAY NOT-TAKING VYVANSE 20 MG CAPSULE 1 CAPSULE IN THE MORNING ORALLY ONCE A DAY NOT-TAKING KEFLEX 250 MG CAPSULE 1 CAPSULE ORALLY ONCE DAILY NOT-TAKING URIBEL 118 MG CAPSULE 1 CAPSULE ORALLY FOUR TIMES A DAY NEEDED NOT-TAKING ELMIRON 100 MG CAPSULE 1 CAPSULE ON AN EMPTY STOMACH ORALLY THREE TIMES A DAY NOT-TAKING MINIPRESS 1 MG CAPSULE 3 CAPSULE AT BEDTIME ORALLY ONCE A DAY NOT-TAKING KEFLEX 500 MG CAPSULE 1 CAPSULE ORALLY TWICE A DAY NOT-TAKING OXYBUTYNIN CHLORIDE ER 5 MG TABLET EXTENDED RELEASE 24 HOUR 1 TABLET ORALLY ONCE A DAY NOT-TAKING LEVAQUIN 500 MG TABLET 1 TABLET ORALLY ONCE A DAY NOT-TAKING BACTRIM DS 800-160 MG TABLET 1 TABLET ORALLY TWICE A DAY NOT-TAKING PYRIDIUM 200 MG TABLET 1 TABLET AFTER MEALS ORALLY THREE TIMES A DAY NOT-TAKING MELATONIN 3 MG TABLET 2 TABLET AT BEDTIME NEEDED WITH FOOD ORALLY ONCE A DAY NOT-TAKING KEFLEX 500 MG CAPSULE 1 CAPSULE ORALLY TWICE A DAY NOT-TAKING AMITRIPTYLINE HCL 10 MG TABLET 1 TABLET AT BEDTIME ORALLY ONCE A DAY NOT-TAKING DIAZEPAM 2 MG TABLET 1 TABLET NEEDED ORALLY THREE TIMES DAILY NOT-TAKING DULOXETINE HCL 20 MG CAPSULE DELAYED RELEASE PARTICLES 2 CAPSULE ORALLY DAILY NOT-TAKING TIZANIDINE HCL 2 MG TABLET 2 TABLET AT BEDTIME ORALLY BEFORE BEDTIME NOT-TAKING DICLOFENAC SODIUM 50 MG TABLET DELAYED RELEASE 1 TABLET ORALLY THREE TIMES DAILY NOT-TAKING PREGABALIN 75 MG CAPSULE 1 CAPSULE ORALLY BID MEDICATION LIST REVIEWED AND RECONCILED WITH THE PATIENT PAST MEDICAL HISTORY IC ANXIETY DEPRESSION IBS ENDOMETRIOSIS CHRONIC PAIN ALLERGIES MACROBID: HIVES - ALLERGY PREMARIN: HIVES - ALLERGY LATEX: HIVES - ALLERGY SOCIAL HISTORY GENERAL: TOBACCO USE ARE YOU A:NONSMOKER LATEX QUESTIONNAIRE LATEX ALLERGY : HAVE YOU EVER DEVELOPED ANY TYPE OF REACTION AFTER HANDLING LATEX PRODUCTS SUCH RUBBER GLOVES, CONDOMS, DIAPHRAGMS, BALLOONS, SOCKS, OR UNDERWEAR?YES - PLEASE INDICATE : ANY LATEX PRODUCTS LATEX ALLERGY : HAVE YOU EVER DEVELOPED ANY TYPE OF REACTION DURING OR AFTER DENTAL APPOINTMENT, VAGINAL/RECTAL EXAMINATION, SURGICAL PROCEDURE, OR ANY OTHER EXPOSURE?NO LATEX RISK : HAVE YOU EVER HAD ANY DIFFICULTY BREATHING OR HIVES AFTER EATING OR HANDLING ANY FRUITS, OR VEGETABLES; SUCH KIWI, BANANAS, STONE FRUITS, OR CHESTNUTSNO LATEX RISK : DO YOU HAVE A PREVIOUS PERSONAL HISTORY OF MORE THAN NINE SURGERIES, SPINA BIFIDA, OR REPEATED CATHERIZATIONS? NO LATEX RISK : ARE YOU FREQUENTLY EXPOSED TO LATEX PRODUCTS IN YOUR OCCUPATION?NO DATE ASKED : 10/24/2020 ALCOHOL USE: NO. ALCOHOL SCREENING POINTS: 1, INTERPRETATION: NEGATIVE. RECREATIONAL DRUG USE DRUG USE?NO HX OF OPIOD ADDICTION. NONE CURRENTLY. CAFFEINE CAFFEINE USE?YES 2 CUPS/DAY SEXUAL HX HAD SEX IN THE LAST 12 MONTHS (VAGINAL, ORAL, OR ANAL)?: YES, WITH: MEN ONLY, USE PROTECTION?: NO, HAVE YOU EVER HAD AN STD?: YES, CHLAMYDIA?: YES. CATHOLIC NO ANABAPTISM BELIEFS THAT WOULD IMPACT HEALTH CARE. LANGUAGE SPANISH. 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 EXERCISE: NO REGULAR EXERCISE. MARITAL STATUS: .. REVIEW OF SYSTEMS CONSTITUTIONAL: ANY RECENT FEVER NO . CHILLS NO . WEIGHT CHANGE OF UNKNOWN REASONS NO . GASTROENTEROLOGY: NEW UNEXPLAINABLE CHANGES IN BOWEL CONTROL NO . CONSTIPATION NO . GENITOURINARY: ANY NEW CHANGE IN BLADDER CONTROL? NO . NEUROLOGY: NEW ONSET DIZZINESS OR NEUROLOGICAL CHANGES NOT MENTIONED NO . NEW NUMBNESS OR PAIN PATTERNS NOT MENTIONED AND PERTINENT TO TODAY'S VISIT NO . CARDIOLOGY: NEW CHEST PRESSURE NO . NEW CHEST PAIN NO . RESPIRATORY: UNEXPLAINABLE COUGH NO . NEW SHORTNESS OF BREATH NO . VITAL SIGNS WT 144.4 LBS, HT 5'2", BMI 26.41 INDEX, BP 119/58 MM HG, HR 82 /MIN, RR 18 /MIN, TEMP 97.5 F, OXYGEN SAT % 97, SAFE IN ENV? (Y/N) YES, REVIEWED BY: APA. VITO RN. EXAMINATION GENERAL EXAMINATION: GENERALNO ACUTE DISTRESS, WELL NOURISHED AND HYDRATED. PSYCHAPPROPRIATE MOOD AND AFFECT . LUNGS:CLEAR TO AUSCULTATION BILATERALLY, NO WHEEZES, RHONCHI, RALES. HEART:NO MURMURS, REGULAR RATE AND RHYTHM. BACK:POINT TENDER ALONG LUMBAR SPINE, SURROUNDING SKIN SHOWS NO ERYTHEMA, ECCHYMOSIS, INCREASED WARMTH, AND/OR SKIN ERUPTIONS NOTED. POSITIVE MODIFIED SLR LEFT SIDE . MUSCULOSKELETAL:NOTABLE WEAKNESS OF THE LEFT LOWER EXTREMITY, RIGHT LOWER EXTREMITY WITHIN NORMAL LIMITS . ASSESSMENTS INTERVERTEBRAL DISC DISORDERS WITH RADICULOPATHY, LUMBOSACRAL REGION - M51.17 (PRIMARY) TREATMENT INTERVERTEBRAL DISC DISORDERS WITH RADICULOPATHY, LUMBOSACRAL REGION NOTES: 45-YEAR-OLD FEMALE IN FOR CHRONIC PAIN FOLLOW-UP. GIVEN PRESENTING SYMPTOMS AND RESULTS OF PHYSICAL EXAMINATION RECOMMENDED LUMBAR EPIDURAL STEROID INJECTIONS L4-L5 L5-S1 WITH POST PROCEDURAL FOLLOW-UP. DISCUSSED NONWEIGHTBEARING EXERCISES WITH PATIENT TO INCLUDE CYCLING AND USE OF AN ELLIPTICAL PATIENT IS CONCERNED WITH WEIGHT GAIN. PATIENT HAS EXPRESSED UNDERSTANDING OF AND WAS IN AGREEMENT WITH TREATMENT PLAN. GIVEN TIME TO ASK QUESTIONS AND EXPRESS CONCERNS. LUMBAR EPIDURAL INFORMATIONPRINTED, REVIEWED AND GIVEN TO PT. EM . OTHERS NOTES: BACK EXERCISES MATERIAL WAS PRINTED, REVIEWED AND GIVEN TO PT. EM. PROCEDURE CODES FA211 ESTABILISHED PATIENT [facility] CHARGE DISPOSITION & COMMUNICATION FOLLOW UP POSTPROCEDURE (REASON: LUMBAR EPIDURAL STEROID INJECTION L4-L5 L5-S1) ELECTRONICALLY SIGNED BY MARIA GUADALUPE BARR ON 10/25/2020 AT 01:01 PM EST DISCLAIMER : THIS IS A VISIT SUMMARY EXTRACTED FROM THE [employer] CHART. IT IS NOT A COPY OF THE [employer] PROGRESS NOTE. MURRAY
== END ==
LOC: M PAIN 11:00
PROVIDERS: ATTEND Family Medicine
DX: M51.17 Intervertebral disc disorders with radiculopathy, lumbosacral region (principal); F41.9 Anxiety disorder, unspecified; F32.9 Major depressive disorder, single episode, unspecified; G89.29 Other chronic pain; N80.9 Endometriosis, unspecified; Z79.899 Other long term (current) drug therapy; Z88.1 Allergy status to other antibiotic agents; Z88.8 Allergy status to other drugs, medicaments and biological substances; Z91.040 Latex allergy status

== ENCOUNTER → 2020-11-10 | Outpatient (CLI) | payer OTHER, MEDICAID | LOC: M LABSMTC 10:44 | PROVIDERS: ATTEND Anesthesiology | DX: Z01.812 Encounter for preprocedural laboratory examination (principal); Z20.822 Contact with and (suspected) exposure to COVID-19 ==

== ENCOUNTER → 2020-11-29 | Outpatient (CLI) | payer MEDICARE ==
--- NOTE | 2020-11-29 12:04 | REPVR ---
PROCEDURE INFORMATION: Exam: MR Lumbar Spine Without Contrast Exam date and time: 11/29/2020 11:53 AM Age: 45 years old Clinical indication: Condition or disease; Spondylosis, lumbosacral; Lumbar region; With radiculopathy; Additional info: Spondylosis, hnp vs stenosis TECHNIQUE: Imaging protocol: Multiplanar magnetic resonance images of the lumbar spine without intravenous contrast. COMPARISON: CT Spine, lumbar w/o contrast 06/13/2020 1:13 PM FINDINGS: Vertebrae: No acute compression fracture is seen. Bone marrow signal is within normal limits. Spinal cord: The conus medullaris terminates at the T12-L1 level. There is no evidence of arachnoiditis or cauda equina compression. L1-L2: There is mild facet arthropathy. There is no spinal canal or neural foraminal stenosis. L2-L3: There is minimal diffuse circumferential disc bulging with a superimposed small shallow left paracentral disc protrusion. Mild facet arthropathy is also noted. There is no significant spinal canal stenosis. The neural foramina are patent. L3-L4: There is mild facet arthropathy. No spinal canal or neural foraminal stenosis is present. L4-L5: There is mild diffuse circumferential disc bulging with superimposed right paracentral and left foraminal and extraforaminal annular fissures. Mild facet arthropathy and thickening of the ligamentum flavum is also present. This is causing minimal spinal canal stenosis, mild narrowing of the subarticular recesses, and mild bilateral neural foraminal narrowing. L5-S1: There is moderate diffuse circumferential disc bulging with a superimposed central and left paracentral disc protrusion. Mild facet arthropathy and right foraminal osteophytic ridging is also present. The disc protrusion is abutting and posteriorly displacing the descending left S1 nerve root. No compression is present. There is minimal spinal canal stenosis, mild narrowing of the left subarticular recess, and mild right neural foraminal narrowing. Soft tissues: Unremarkable. IMPRESSION: Degenerative changes of the lumbar spine as discussed above Electronically signed by: Ramu Peacock On 11/29/2020 12:04:53 PM
== END ==
LOC: M RAD 11:19
PROVIDERS: ATTEND Physician Assistant
DX: M47.817 Spondylosis without myelopathy or radiculopathy, lumbosacral region (principal)

== ENCOUNTER 2021-01-25 04:55 | Emergency (ER) | payer MEDICARE ==
[~2021-01-25] VITALS: Ht 157.5 cm; Wt 68.2 kg
[2021-01-25] MEDS ORDERED: AMIT10TA7 PO (05:06)
[2021-01-25] MEDS ORDERED: KETOROLAC 60MG 2ML VIAL IM ONE (06:15)
[2021-01-25] MEDS ORDERED: ACETAMINOPHEN 500 MG TAB PO ONE (06:15)
--- NOTE | 2021-01-25 07:21 | REPVR ---
PROCEDURE INFORMATION: Exam: CT Lumbar Spine Without Contrast Exam date and time: 01/25/2021 6:13 AM Age: 45 years old Clinical indication: Low back pain; Additional info: HX chronic back pain, worse 2-3 days TECHNIQUE: Imaging protocol: Computed tomography images of the lumbar spine without contrast. Radiation optimization: All CT scans at this facility use at least one of these dose optimization techniques: automated exposure control; mA and/or kV adjustment per patient size (includes targeted exams where dose is matched to clinical indication); or iterative reconstruction. COMPARISON: CT Spine, lumbar w/o contrast 06/13/2020 1:13 PM FINDINGS: Vertebrae: There is no evidence of fracture. Discs/Spinal canal/Neural foramina: The lower thoracic and mid and upper lumbar levels show no evidence of significant disc space narrowing, disc herniations, foraminal stenosis or canal compromise. There is mild left lateral disc herniation at L4-L5 on axial image 39 and sagittal image 23 which probably produces mild left subarticular stenosis. There is no foraminal compromise. There is mild facet arthropathy. There is moderate central herniation at L5-S1 with mild caudal extrusion of disc material in the left subarticular region on sagittal image 24 probably compressing the descending left S1 nerve root on axial images 46 and 47. The prominence of the disc has decreased from the comparison study of 06/13/2020. Gallbladder and bile ducts: Surgical clips are present in the right upper quadrant, consistent with previous cholecystectomy. Soft tissues: Unremarkable. IMPRESSION: 1. There is no evidence of fracture. 2. There is mild left lateral disc herniation at L4-L5 on axial image 39 and sagittal image 23 which probably produces mild left subarticular stenosis. There is no foraminal compromise. There is mild facet arthropathy. 3. There is moderate central herniation at L5-S1 with mild caudal extrusion of disc material in the left subarticular region on sagittal image 24 probably compressing the descending left S1 nerve root on axial images 46 and 47. The prominence of the disc has decreased from the comparison study of 06/13/2020. Electronically signed by: Olvin Yates On 01/25/2021 07:21:15 AM
[2021-01-25 07:36] VITALS: BP 134/76
--- NOTE | 2021-01-25 09:17 | ED PDOC ---
Post-Departure Follow-Up ct ls spine faxed to [facility] for [facility] Rio Barba MD Jan 25, 2021 09:17
== END 2021-01-25 07:37 | disposition home or self-care (01) ==
LOC: M ED 04:55
DX: M51.17 Intervertebral disc disorders with radiculopathy, lumbosacral region (principal); M51.26 Other intervertebral disc displacement, lumbar region; G89.29 Other chronic pain; K58.1 Irritable bowel syndrome with constipation; F41.9 Anxiety disorder, unspecified; F33.9 Major depressive disorder, recurrent, unspecified; F43.10 Post-traumatic stress disorder, unspecified; Z79.899 Other long term (current) drug therapy; Z79.890 Hormone replacement therapy; Z87.19 Personal history of other diseases of the digestive system; Z98.890 Other specified postprocedural states; Z88.8 Allergy status to other drugs, medicaments and biological substances; Z91.040 Latex allergy status
CPT/HCPCS: 72131; 96372; 99283; J1885

== ENCOUNTER → 2021-02-02 | Outpatient (CLI) | payer OTHER, MEDICAID ==
[~2021-02-02] MED LIST changes: +AMIT10TA7 PO
== END ==
LOC: M LABSMTC 10:06
PROVIDERS: ATTEND Anesthesiology
DX: Z11.52 Encounter for screening for COVID-19 (principal)

== ENCOUNTER → 2021-02-07 | Outpatient (CLI) | payer MEDICARE, OTHER ==
[~2021-02-07] MED LIST changes: +ISOVUE-M 300 61% 15ML VIAL As Ordered ONE; +LIDOCAINE 1% SDV 30ML VIAL As Ordered ONE; +NORCO, ANEXSIA 5/325MG TABLET (HYDROcodone/ACETAMINOPHEN) As Ordered ONE; +diazePAM 5MG TABLET As Ordered ONE; +diphenhydrAMINE 25MG CAP As Ordered ONE; +methylPREDNISolone SUSP 40MG/ML 1ML VIAL (DEPO MEDROL) As Ordered ONE; +oxyCODONE 5MG TAB As Ordered ONE
--- NOTE | 2021-02-07 10:35 | REP ---
INDICATION: LESI. COMPARISON: None. TECHNIQUE: Intraoperative fluoroscopic imaging using portable C-arm technique. FINDINGS: Two images demonstrate catheter and contrast overlying the lumbar epidural space. Total fluoroscopic time 8 seconds. IMPRESSION: Status post spine injection. <Electronically signed by Javier Hernandez > 02/07/21 1039
--- NOTE | 2021-02-11 00:13 | ECWPNPC ---
PATIENT NAME: ARMIN READ : 1975 GENDER: FEMALE VISIT DATE: 02/07/2021 DISCHARGE DATE: 02/07/21 1056 VISIT LOCKED DATE TIME: PHYSICIAN: STORMY CHRISTENSEN MD RESOURCE: STORMY CHRISTENSEN MD REASON FOR APPOINTMENT 1. LUMBAR EPIDURAL STEROID INJECTION HISTORY OF PRESENT ILLNESS GENERAL: -. FALL RISK SCREENING: SCREENING : NO FALLS REPORTED IN THE LAST YEAR. PAIN SCREENING: PATIENT HAS A COMPLAINT OF ACUTE OR CHRONIC PAIN :YES LOCATION OF PAIN:LOW BACK INTENSITY OF PAIN (SCALE OF 1 TO 10):10 WHAT DOES YOUR PAIN FEEL LIKE:ACHING, BURNING, SHARP, STABBING, TENDER, THROBBING, SHOOTING DURATION:CONTINOUS, STEADY NURSING NOTE: -. PAIN CENTER INTAKE QUESTIONS: DO YOU HAVE A HISTORY OF MRSA? :NO DO YOU TAKE A BLOOD THINNERS? :NO DO YOU HAVE ANY BLEEDING DISORDERS? :NO ANY NEW NUMBNESS OR WEAKNESS IN YOUR LEGS OR ARMS? :NO ANY PACEMAKER,DEFIBRILLATOR, OR DORSAL COLUMN STIMULATOR? :NO DO YOU HAVE ANY RASHES OR OPEN SORES? :NO ARE YOU ALLERGIC TO IV DYE? :NO ARE YOU DIABETIC? :NO ANY NEW PROBLEMS WITH YOUR MEDICATIONS? :NO HAVE YOU RECEIVED A VACCINE IN THE PAST 30 DAYS? :NO DO YOU PLAN TO RECEIVE A VACCINE IN THE NEXT 21 DAYS? :NO DO YOU TAKE ANY IMMUNOSUPPRESSIVE MEDICATIONS? :NO ANY HISTORY OF SEIZURES? :NO ANY HISTORY OF CARDIAC ISSUES OR EVENTS? :NO DO YOU HAVE ANY KIDNEY OR LIVER DISEASE? :NO DO YOU HAVE SLEEP APNEA? :NO ANY RECENT HEAD INJURY? :NO DO YOU HAVE ANY NEW INFECTIONS? :NO IS THERE A CHANCE YOU COULD BE ? :NO ARE YOU BREAST FEEDING? :NO WHEN DID YOU LAST EAT? : -0600 02/07/21 WHEN DID YOU LAST DRINK? : -2300 02/07/21 WHAT DID YOU LAST DRINK? : -WATER NAME OF PERSON DRIVING YOU HOME? : -FRIEND JONATHAN JO DO YOU HAVE ANY OTHER QUESTIONS OR CONCERNS? : -DENIES CURRENT MEDICATIONS TAKING ESTRADIOL 1 MG TABLET 1 TABLET ORALLY TAKING AMITRIPTYLINE HCL 10 MG TABLET 1 TABLET AT BEDTIME ORALLY ONCE A DAY TAKING LAMOTRIGINE 100 MG TABLET 1 TABLET ORALLY ONCE A DAY NOT-TAKING PAROXETINE HCL 40 MG TABLET 1 TABLET IN THE MORNING ORALLY ONCE A DAY NOT-TAKING TRAZODONE 100 100MG TABLET ORAL NOT-TAKING ABILIFY 2 MG TABLET 1 TABLET ORALLY ONCE A DAY NOT-TAKING VYVANSE 20 MG CAPSULE 1 CAPSULE IN THE MORNING ORALLY ONCE A DAY NOT-TAKING KEFLEX 250 MG CAPSULE 1 CAPSULE ORALLY ONCE DAILY NOT-TAKING URIBEL 118 MG CAPSULE 1 CAPSULE ORALLY FOUR TIMES A DAY NEEDED NOT-TAKING ELMIRON 100 MG CAPSULE 1 CAPSULE ON AN EMPTY STOMACH ORALLY THREE TIMES A DAY NOT-TAKING MINIPRESS 1 MG CAPSULE 3 CAPSULE AT BEDTIME ORALLY ONCE A DAY NOT-TAKING KEFLEX 500 MG CAPSULE 1 CAPSULE ORALLY TWICE A DAY NOT-TAKING OXYBUTYNIN CHLORIDE ER 5 MG TABLET EXTENDED RELEASE 24 HOUR 1 TABLET ORALLY ONCE A DAY NOT-TAKING LEVAQUIN 500 MG TABLET 1 TABLET ORALLY ONCE A DAY NOT-TAKING BACTRIM DS 800-160 MG TABLET 1 TABLET ORALLY TWICE A DAY NOT-TAKING PYRIDIUM 200 MG TABLET 1 TABLET AFTER MEALS ORALLY THREE TIMES A DAY NOT-TAKING MELATONIN 3 MG TABLET 2 TABLET AT BEDTIME NEEDED WITH FOOD ORALLY ONCE A DAY NOT-TAKING KEFLEX 500 MG CAPSULE 1 CAPSULE ORALLY TWICE A DAY NOT-TAKING AMITRIPTYLINE HCL 10 MG TABLET 1 TABLET AT BEDTIME ORALLY ONCE A DAY NOT-TAKING DIAZEPAM 2 MG TABLET 1 TABLET NEEDED ORALLY THREE TIMES DAILY NOT-TAKING DULOXETINE HCL 20 MG CAPSULE DELAYED RELEASE PARTICLES 2 CAPSULE ORALLY DAILY NOT-TAKING TIZANIDINE HCL 2 MG TABLET 2 TABLET AT BEDTIME ORALLY BEFORE BEDTIME NOT-TAKING DICLOFENAC SODIUM 50 MG TABLET DELAYED RELEASE 1 TABLET ORALLY THREE TIMES DAILY NOT-TAKING PREGABALIN 75 MG CAPSULE 1 CAPSULE ORALLY BID NOT-TAKING SOMA 350 MG TABLET 1 TABLET NEEDED ORALLY BID PAST MEDICAL HISTORY IC ANXIETY DEPRESSION IBS ENDOMETRIOSIS CHRONIC PAIN ALLERGIES MACROBID: HIVES - ALLERGY PREMARIN: HIVES - ALLERGY LATEX: HIVES - ALLERGY SOCIAL HISTORY GENERAL: TOBACCO USE ARE YOU A:NONSMOKER LATEX QUESTIONNAIRE LATEX ALLERGY : HAVE YOU EVER DEVELOPED ANY TYPE OF REACTION AFTER HANDLING LATEX PRODUCTS SUCH RUBBER GLOVES, CONDOMS, DIAPHRAGMS, BALLOONS, SOCKS, OR UNDERWEAR?YES LATEX ALLERGY : HAVE YOU EVER DEVELOPED ANY TYPE OF REACTION DURING OR AFTER DENTAL APPOINTMENT, VAGINAL/RECTAL EXAMINATION, SURGICAL PROCEDURE, OR ANY OTHER EXPOSURE?NO - PLEASE INDICATE : ANY LATEX PRODUCTS DATE ASKED : 01/25/2021 LATEX RISK : HAVE YOU EVER HAD ANY DIFFICULTY BREATHING OR HIVES AFTER EATING OR HANDLING ANY FRUITS, OR VEGETABLES; SUCH KIWI, BANANAS, STONE FRUITS, OR CHESTNUTSNO LATEX RISK : DO YOU HAVE A PREVIOUS PERSONAL HISTORY OF MORE THAN NINE SURGERIES, SPINA BIFIDA, OR REPEATED CATHERIZATIONS? NO LATEX RISK : ARE YOU FREQUENTLY EXPOSED TO LATEX PRODUCTS IN YOUR OCCUPATION?NO ALCOHOL USE: NO. ALCOHOL SCREENING POINTS: 1, INTERPRETATION: NEGATIVE. RECREATIONAL DRUG USE DRUG USE?NO HX OF OPIOD ADDICTION. NONE CURRENTLY. CAFFEINE CAFFEINE USE?YES 2 CUPS/DAY SEXUAL HX HAD SEX IN THE LAST 12 MONTHS (VAGINAL, ORAL, OR ANAL)?: YES, WITH: MEN ONLY, USE PROTECTION?: NO, HAVE YOU EVER HAD AN STD?: YES, CHLAMYDIA?: YES. VOODOO NO ADVENTISM BELIEFS THAT WOULD IMPACT HEALTH CARE. LANGUAGE IRISH. 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 DIET: REGULAR. EXERCISE: NO REGULAR EXERCISE. MARITAL STATUS: .. VITAL SIGNS WT 154.4 LBS, HT 5'2", BMI 28.24 INDEX, BP 117/72 MM HG, HR 103 /MIN, RR 18 /MIN, TEMP 97.5 F, OXYGEN SAT % 97%, NA INITIALS SC 08:48. EXAMINATION GENERAL: A HISTORY AND PHYSICAL EXAM ON THE PATIENT WAS DONE ON 01/25/2021 (DATE OF ORIGINAL ASSESSMENT) IN PREPARATION OF SURGERY/PROCEDURE. I HAVE NOW REASSESSED THIS PATIENT'S HEALTH STATUS AND PERFORMED AN UPDATED EXAM TODAY. ALL CHANGES IN THE PATIENT'S HISTORY, PHYSICAL EXAM, PRE-EXISTING CONDITONS, AND INDICATIONS/CONTRAINDICATIONS TO THE PLANNED PROCEDURE AND ANESTHESIA ARE DOCUMENTED AND EVALUATED BELOW. I ATTEST TO THE ADEQUACY AND APPROPRIATENESS OF MY ASSESSMENT, AND CONFIRM THE NECESSITY FOR THE PLANNED PROCEDURE. THE PATIENT IS ALERT, ORIENTED TIMES THREE AND COOPERATIVE. LUNGS ARE CLEAR TO AUSCULTATION. HEART SHOWS REGULAR RHYTHM, NO MURMURS AND NO GALLOPS. ASSESSMENTS INTERVERTEBRAL DISC DISORDERS WITH RADICULOPATHY, LUMBOSACRAL REGION - M51.17 (PRIMARY) TREATMENT INTERVERTEBRAL DISC DISORDERS WITH RADICULOPATHY, LUMBOSACRAL REGION [facility] FLUORO GUIDE SPINE INJECTION (PAIN)[id number] MEDICATION: OXYCODONE HCL TAB 5MG ORALLY MARIA ISABELKAY Condon 02/07/2021 9:13:22 AM > [facility] 9:17:08 AM > ADMINISTERED MED: PAIN BENADRYL TAB 25MG ORALLY DIPHENHYDRAMINELANEADANKAMINI CondonKAY 02/07/2021 9:13:34 AM > [facility]/07/2021 9:17:33 AM > ADMINISTERED MEDICATION: VALIUM TAB 10MG ORALLY (DIAZEPAM)MARIA ISABELKAMINI CondonKAY 02/07/2021 8:57:53 AM > [facility]/07/2021 9:00:15 AM > ADMINISTERED MED: PAIN NORCO TABLET 5MG/325MG ORALLY HYDROCODONE/ACETAMINOPHENMAJASMINKAY 02/07/2021 8:58:06 AM > [facility]/07/[facility]21 9:00:40 AM > ADMINISTERED PROCEDURES PAIN NURSING RECORD PROCEDURE IN ROOM 0930, PHYSICIAN IN ROOM 1013, START 1017, FINISH 1025, PHYSICIAN OUT OF ROOM 1030, OUT OF ROOM 1036, ECG NORMAL SINUS, PATIENT SHIELDED YES, SAFETY STRAP YES, PREP BETADINE Ruchi NICOLAS RN, DRESSING TEGADERM DR. CHRISTENSEN LOC: 2. DROWSY, RESPONDS APPROPRIATELY [facility] 02/07/2021 9:45:29 AM > RESP: 1. REGULAR, NO DYSPNEA [facility] 02/07/2021 9:45:43 AM > COLOR: 1. PINK [facility] 02/07/2021 9:45:48 AM > SKIN: 1. WARM, DRY [facility] 02/07/2021 9:45:54 AM > POSITION: 1. PRONE [facility] 02/07/2021 9:45:59 AM > VITALS: HR88, 95%, 137/86, R12, PAIN 9/10 [facility] 02/07/2021 9:47:18 AM > HR 87, 96%, 137/86, R12, PAIN 8/10 [facility] 02/07/2021 1000 > HR 89, 96%, 140/88, R12, PAIN 10/10 [facility] 02/07/2021 1015 AM > HR 87, 95%, 137/85, R12, PAIN 10/10 FABIOLA HARRISON 02/07/2021 1030 AM > HR 102, 98%, 145/88, R12 PAIN 10/10 FABIOLA HARRISON 02/07/2021 1100 AM > NOTES Giulia HARRISON RN COMPLETION OF PROCEDURE APPOINTMENT: POST PAIN 10, DRESSING SITE DRY AND INTACT, IV N/A, GAIT WHEELCHAIR, TEACHING COMPLETED, PATIENT ACKNOWLEDGES UNDERSTANDING YES, PROCEDURE APPOINTMENT COMPLETED AT 1100 : CRITERIA MET AT 1100 PATIENT TAKEN TO CAR BY WHEELCHAIR. PRE PROCEDURE DIAGNOSIS LUMBAR DISC DISORDER WITH RADICULOPATHY POST PROCEDURE DIAGNOSIS LUMBAR DISC DISORDER WITH RADICULOPATHY PROCEDURE LUMBAR EPIDURAL STEROID INJECTION UNDER FLUOROSCOPIC GUIDANCE SURGEON DR. STORMY CHRISTENSEN MANAGER PHYSICAL NONE ANESTHESIA LOCAL PRE PROCEDURE NOTE THE PATIENT HAS A HISTORY OF CHRONIC LOW BACK PAIN. I EVALUATED THE PATIENT AND REVIEWED THE CHART. I WENT OVER THE RISKS, ALTERNATIVES, AND BENEFITS ASSOCIATED WITH THIS PROCEDURE. THE PATIENT WOULD LIKE TO PROCEED AND GIVE CONSENT TO PERFORMED THE PROCEDURE. THE PATIENT DENIES UNEXPLAINABLE WEIGHT LOSS, FEVER, CHILLS, OR NEW CHANGES IN URINARY OR BOWEL CONTROL. THE PATIENT IS COVID-19 NEGATIVE DESCRIPTION OF PROCEDURE THE PATIENT WAS BROUGHT TO THE PROCEDURE ROOM AND PLACED IN THE PRONE POSITION. THE LUMBOSACRAL AREA WAS CLEANED WITH BETADINE SOLUTION AND DRAPED ASEPTICALLY. THE PROCEDURE WAS DONE UNDER STERILE CONDITIONS. A TIMEOUT WAS PERFORMED WHERE THE CONSENTED SITE WAS VERIFIED WITH EVERYONE IN THE ROOM. UNDER FLUOROSCOPIC GUIDANCE, THE TARGET POINT WAS SELECTED AT THE INTERLAMINAR LEVEL OF L5-S1. I CONFIRMED AGAIN THE SITE OF TARGET. LIDOCAINE WAS USED TO NUMB THE SKIN AND THE SUBCUTANEOUS TISSUE BELOW IT. EPIDURAL TUOHY NEEDLE, 17-GAUGE, WAS ADVANCED UNDER FLUOROSCOPIC GUIDANCE AND FOLLOWING PATIENT FEEDBACK UNTIL THE EPIDURAL SPACE WAS REACHED 8 CM DEEP INTO THE SKIN BY THE LOSS OF RESISTANCE TECHNIQUE. ISOVUE-M DYE 30%, 0.25 ML, WAS INJECTED SHOWING ADEQUATE SPREAD OF THE DYE. THEN, A SOLUTION OF 3 ML OF NORMAL SALINE WITH DEPO-MEDROL 40 MG WAS INJECTED SLOWLY FOLLOWING PATIENT FEEDBACK. THE MEDICATIONS WERE VERIFIED WITH THE NURSE. THERE WAS NO EVIDENCE OF BLOOD, PARESTHESIA OR CEREBROSPINAL FLUID DURING THE PROCEDURE. THE PATIENT WAS SENT TO THE RECOVERY ROOM. THE PATIENT WAS MOVING THE EXTREMITIES AND DOING WELL. THERE WERE NO COMPLICATIONS DURING THE PROCEDURE. ESTIMATED BLOOD LOSS WAS LESS THAN 5 ML. FLUOROSCOPY TIME WAS 8 SECONDS POST PROCEDURE NOTE DEPENDING ON THE RESULTS, CONSIDER A TRANSFORAMINAL EPIDURAL L5-S1. THE PATIENT WILL BE SEEN IN A FOLLOW UP IN THE NEXT FEW WEEKS. I AM LOOKING FOR LONG LASTING RELIEF FOR THE PATIENT WITH THIS INTERVENTION. INSTRUCTIONS WERE GIVEN, QUESTIONS WERE ANSWERED, AND THE PATIENT EXPRESSED UNDERSTANDING AND AGREES WITH THE PLAN. I, JUNIOR PARKS, DOCUMENTED THE ABOVE INFORMATION ACTING A SCRIBE FOR DR. CHRISTENSEN. I HAVE REVIEWED THE ABOVE DOCUMENT, WRITTEN BY JUNIOR PARKS, HEALTH MANAGER, AND I VERIFY THAT IT IS ACCURATE PROCEDURE CODES 31424 LUMBAR/SACRAL W/ IMAGING DISPOSITION & COMMUNICATION FOLLOW UP FOLLOW UP WITH DIRECTOR OPERATIONS (REASON: POST LUMBAR EPIDURAL STEROID INJECTION) ELECTRONICALLY SIGNED BY STORMY CHRISTENSEN MD, MD ON 02/10/2021 AT 03:50 PM EDT DISCLAIMER : THIS IS A VISIT SUMMARY EXTRACTED FROM THE [employer] CHART. IT IS NOT A COPY OF THE [employer] PROGRESS NOTE. MURRAY
== END ==
LOC: M PAIN 08:30
PROVIDERS: ATTEND Anesthesiology
DX: M51.17 Intervertebral disc disorders with radiculopathy, lumbosacral region (principal); Z86.59 Personal history of other mental and behavioral disorders; Z79.899 Other long term (current) drug therapy
CPT/HCPCS: 62323; J1030; Q9967

== ENCOUNTER → 2023-02-15 | Outpatient (CLI) | payer MEDICARE, MEDICAID ==
[~2023-02-15] MED LIST changes: -ISOVUE-M 300 61% 15ML VIAL As Ordered ONE; -LIDOCAINE 1% SDV 30ML VIAL As Ordered ONE; -NORCO, ANEXSIA 5/325MG TABLET (HYDROcodone/ACETAMINOPHEN) As Ordered ONE; -PAXI30TA11 PO; +PAXI30TA12 PO; -ZONI100C17 PO; +ZONI100C67 PO; -diazePAM 5MG TABLET As Ordered ONE; -diphenhydrAMINE 25MG CAP As Ordered ONE; -methylPREDNISolone SUSP 40MG/ML 1ML VIAL (DEPO MEDROL) As Ordered ONE; -oxyCODONE 5MG TAB As Ordered ONE
[2023-02-15 12:46] LABS: BASO # 0.1 10^3/uL (0.0-0.2); EOS # 0.1 10^3/uL (0.0-0.5); EOS % 1.6 % (0.0-3.0); HEMATOCRIT 44.7 % (36.0-47.0); HEMOGLOBIN 14.1 g/dl (12.0-15.5); LYMPH % 28.8 % (24.0-44.0); MEAN CORPUSCULAR HEMOGLOBIN 28.2 pg (27.0-33.0); MEAN CORPUSCULAR HGB CONC 31.5 g/dl (32.0-36.5); MEAN CORPUSCULAR VOLUME 89.4 fl (80.0-96.0); MONO # 0.4 10^3/uL (0.0-0.8); MONO % 5.3 % (2.0-8.0); NEUTROPHILS # 4.4 10^3/uL (1.5-8.5); PLATELET COUNT, AUTOMATED 281 10^3/uL (150-450)
[2023-02-15 13:00] LABS: HEMOGLOBIN A1c 4.9 % (4.0-6.0)
[2023-02-15 13:11] LABS: FREE T4 1.03 NG/DL (0.89-1.76)
[2023-02-15 13:12] LABS: ALBUMIN 3.7 G/DL (3.2-5.2); ALKALINE PHOSPHATASE 106 U/L (46-116); ALT/SGPT 16 U/L (7.0-40); AST/SGOT 15 U/L (<34); BILIRUBIN,TOTAL 0.8 MG/DL (0.3-1.2); BLOOD UREA NITROGEN 14 MG/DL (9-23); CARBON DIOXIDE LEVEL 27 MMOL/L (20-31); CHLORIDE LEVEL 106 MMOL/L (98-107); CHOLESTEROL LEVEL 192 MG/DL (<200); CHOLESTEROL RISK RATIO 4.57 (<5); GLOMERULAR FILTRATION RATE > 60.0 (>58); GLUCOSE, FASTING 73 MG/DL (60-100); LDL CHOLESTEROL 118.2 MG/DL (<100); POTASSIUM SERUM 4.6 MMOL/L (3.5-5.1); SODIUM LEVEL 140 MMOL/L (136-145); THYROID STIMULATING HORMONE 1.875 uIU/ML (0.55-4.78); TOTAL PROTEIN 6.6 G/DL (5.7-8.2); TRIGLYCERIDES LEVEL 159 MG/DL (<150)
== END ==
LOC: M WUC 10:57
PROVIDERS: ATTEND Registered Nurse
DX: Z00.00 Encounter for general adult medical examination without abnormal findings (principal)

== ENCOUNTER 2023-04-05 17:11 | Emergency (ER) | payer MEDICARE, MEDICAID ==
[~2023-04-05] VITALS: Ht 157.5 cm; Wt 65.0 kg
[2023-04-05] MEDS ORDERED: BUPR300T92 PO (17:28)
[2023-04-05 18:27] LABS: BASO # 0.1 10^3/uL (0.0-0.2); BASO % 0.6 % (0.0-1.0); EOS # 0.2 10^3/uL (0.0-0.5); EOS % 1.9 % (0.0-3.0); HEMATOCRIT 45.5 % (36.0-47.0); HEMOGLOBIN 14.7 g/dl (12.0-15.5); LYMPH # 2.1 10^3/uL (1.5-5.0); LYMPH % 24.5 % (24.0-44.0); MEAN CORPUSCULAR HEMOGLOBIN 27.9 pg (27.0-33.0); MEAN CORPUSCULAR HGB CONC 32.3 g/dl (32.0-36.5); MEAN CORPUSCULAR VOLUME 86.5 fl (80.0-96.0); MONO # 0.5 10^3/uL (0.0-0.8); MONO % 5.5 % (2.0-8.0); NEUTROPHILS # 5.8 10^3/uL (1.5-8.5); NEUTROPHILS % 67.3 % (36.0-66.0); PLATELET COUNT, AUTOMATED 271 10^3/uL (150-450); RED BLOOD COUNT 5.26 10^6/uL (4.00-5.40); WHITE BLOOD COUNT 8.6 10^3/uL (4.0-10.0)
[2023-04-05 18:46] LABS: LIPASE 21 U/L (12-53)
[2023-04-05 18:48] LABS: ALBUMIN 3.8 G/DL (3.2-5.2); ALKALINE PHOSPHATASE 117 U/L (46-116); ALT/SGPT 11 U/L (7.0-40); AST/SGOT < 8 U/L (<34); BILIRUBIN,DIRECT 0.1 MG/DL (<0.4); BILIRUBIN,TOTAL 0.6 MG/DL (0.3-1.2); BLOOD UREA NITROGEN 12 MG/DL (9-23); CALCIUM LEVEL 9.8 MG/DL (8.5-10.1); CARBON DIOXIDE LEVEL 27 MMOL/L (20-31); CHLORIDE LEVEL 106 MMOL/L (98-107); CREATININE FOR GFR 0.84 MG/DL (0.55-1.30); GLOMERULAR FILTRATION RATE > 60.0 (>58); GLUCOSE, FASTING 87 MG/DL (60-100); POTASSIUM SERUM 4.4 MMOL/L (3.5-5.1); SODIUM LEVEL 139 MMOL/L (136-145); TOTAL PROTEIN 6.8 G/DL (5.7-8.2)
[2023-04-05] MEDS ORDERED: ISOVUE-370 76% 100ML VIAL As Ordered ONE (20:37)
[2023-04-05] MEDS ORDERED: HYDR-3713 PO (22:47)
[2023-04-05] MEDS ORDERED: NORCO 5/325MG TABLET (HOME DOSE PACK) PO ONE (22:55)
[2023-04-05 23:28] VITALS: BP 140/86; TEMP 98.4; O2SAT 99
== END 2023-04-05 23:34 | disposition home or self-care (01) ==
LOC: M ED 17:11
DX: R10.9 Unspecified abdominal pain (principal); K76.89 Other specified diseases of liver; Z96.89 Presence of other specified functional implants; K58.9 Irritable bowel syndrome, unspecified; G43.909 Migraine, unspecified, not intractable, without status migrainosus; G47.30 Sleep apnea, unspecified; Z88.8 Allergy status to other drugs, medicaments and biological substances; Z91.040 Latex allergy status
CPT/HCPCS: 36415; 74177; 80048; 80076; 83690; 85025; 86850; 86900; 86901; 99284; Q9967

== ENCOUNTER → 2023-06-20 | Outpatient (CLI) | payer MEDICARE, MEDICAID ==
[~2023-06-20] MED LIST changes: +BUPR300T92 PO; +HYDR-3713 PO
== END ==
LOC: M PLARAD 08:32
PROVIDERS: ATTEND Internal Medicine Gastroenterology
DX: D37.6 Neoplasm of uncertain behavior of liver, gallbladder and bile ducts (principal)

== ENCOUNTER 2023-10-01 13:00 | Emergency (ER) | payer MEDICARE, MEDICAID ==
[~2023-10-01] VITALS: Ht 157.5 cm; Wt 58.8 kg
[2023-10-01] MEDS ORDERED: IBUP-1114 PO (13:06)
[2023-10-01] MEDS ORDERED: RIZA10TA2 (13:06)
[2023-10-01] MEDS ORDERED: ONDANSETRON 4MG 2ML VIAL IV ONE (15:40)
[2023-10-01] MEDS ORDERED: diphenhydrAMINE 50MG/ML VIAL IV ONE (15:40)
[2023-10-01] MEDS ORDERED: KETOROLAC 30 MG/ML 1ML VIAL IV ONE (15:40)
[2023-10-01] MEDS ORDERED: NS 1,000 ML IV ONE (15:40)
[2023-10-01 16:22] LABS: BASO % 0.3 % (0.0-1.0); EOS # 0.1 10^3/uL (0.0-0.5); EOS % 0.9 % (0.0-3.0); HEMATOCRIT 40.4 % (36.0-47.0); HEMOGLOBIN 13.5 g/dl (12.0-15.5); LYMPH % 30.6 % (24.0-44.0); MEAN CORPUSCULAR HEMOGLOBIN 28.9 pg (27.0-33.0); MEAN CORPUSCULAR HGB CONC 33.4 g/dl (32.0-36.5); MEAN CORPUSCULAR VOLUME 86.5 fl (80.0-96.0); MONO # 0.4 10^3/uL (0.0-0.8); MONO % 5.9 % (2.0-8.0); PLATELET COUNT, AUTOMATED 251 10^3/uL (150-450); RED BLOOD COUNT 4.67 10^6/uL (4.00-5.40); WHITE BLOOD COUNT 6.4 10^3/uL (4.0-10.0)
[2023-10-01 16:45] LABS: BLOOD UREA NITROGEN 17 MG/DL (9-23); CALCIUM LEVEL 8.7 MG/DL (8.5-10.1); CARBON DIOXIDE LEVEL 28 MMOL/L (20-31); CHLORIDE LEVEL 108 MMOL/L (98-107); CREATININE FOR GFR 0.71 MG/DL (0.55-1.30); GLOMERULAR FILTRATION RATE > 60.0 (>58); GLUCOSE, FASTING 89 MG/DL (60-100); POTASSIUM SERUM 3.9 MMOL/L (3.5-5.1); SODIUM LEVEL 140 MMOL/L (136-145)
[2023-10-01 19:00] VITALS: BP 118/60; TEMP 98.2; O2SAT 100
== END 2023-10-01 19:12 | disposition home or self-care (01) ==
LOC: M ED 13:00
DX: U07.1 COVID-19 (principal); G43.909 Migraine, unspecified, not intractable, without status migrainosus; F32.A Depression, unspecified; F41.9 Anxiety disorder, unspecified; F43.10 Post-traumatic stress disorder, unspecified; Z79.899 Other long term (current) drug therapy
CPT/HCPCS: 80048; 84702; 85025; 96361; 96374; 96375; 99284; J1100; J1200; J1885; J2405

== ENCOUNTER → 2024-04-21 | Outpatient (CLI) | payer MEDICARE, MEDICAID ==
[~2024-04-21] MED LIST changes: +BUPR-597 PO; -BUPR300T92 PO; +FLUO-365; -FLUO20CA22; +IBUP-1114 PO; +RIZA10TA2
[2024-04-21 12:09] LABS: BASO # 0.1 10^3/uL (0.0-0.2); BASO % 0.8 % (0.0-1.0); EOS # 0.1 10^3/uL (0.0-0.5); EOS % 1.4 % (0.0-3.0); HEMATOCRIT 40.4 % (36.0-47.0); HEMOGLOBIN 13.4 g/dl (12.0-15.5); LYMPH # 1.6 10^3/uL (1.5-5.0); LYMPH % 24.8 % (24.0-44.0); MEAN CORPUSCULAR HEMOGLOBIN 29.8 pg (27.0-33.0); MEAN CORPUSCULAR HGB CONC 33.2 g/dl (32.0-36.5); MEAN CORPUSCULAR VOLUME 89.8 fl (80.0-96.0); MONO # 0.4 10^3/uL (0.0-0.8); MONO % 5.5 % (2.0-8.0); NEUTROPHILS # 4.3 10^3/uL (1.5-8.5); NEUTROPHILS % 67.3 % (36.0-66.0); PLATELET COUNT, AUTOMATED 257 10^3/uL (150-450); WHITE BLOOD COUNT 6.4 10^3/uL (4.0-10.0)
[2024-04-21 12:43] LABS: ALBUMIN 3.8 G/DL (3.2-5.2); ALKALINE PHOSPHATASE 70 U/L (46-116); ALT/SGPT 14 U/L (7.0-40); AST/SGOT 9 U/L (<34); BILIRUBIN,TOTAL 0.6 MG/DL (0.3-1.2); BLOOD UREA NITROGEN 16 MG/DL (9-23); CARBON DIOXIDE LEVEL 27 MMOL/L (20-31); CHLORIDE LEVEL 107 MMOL/L (98-107); CHOLESTEROL LEVEL 178 MG/DL (<200); CHOLESTEROL RISK RATIO 3.56 (<5); CREATININE FOR GFR 0.74 MG/DL (0.55-1.30); GLOMERULAR FILTRATION RATE > 60.0 (>58); GLUCOSE, FASTING 76 MG/DL (60-100); LDL CHOLESTEROL 107.4 MG/DL (<100); SODIUM LEVEL 140 MMOL/L (136-145); TOTAL PROTEIN 6.2 G/DL (5.7-8.2); TRIGLYCERIDES LEVEL 103 MG/DL (<150)
== END ==
LOC: M LAB 10:46
PROVIDERS: ATTEND Registered Nurse
DX: Z00.00 Encounter for general adult medical examination without abnormal findings (principal); K58.8 Other irritable bowel syndrome; E78.00 Pure hypercholesterolemia, unspecified

== ENCOUNTER → 2024-05-19 | Outpatient (CLI) | payer MEDICARE, MEDICAID | LOC: M WHC 06:44 | PROVIDERS: ATTEND Registered Nurse | DX: Z12.31 Encounter for screening mammogram for malignant neoplasm of breast (principal) ==

== ENCOUNTER 2024-10-18 10:47 | Emergency (ER) | payer MEDICARE, MEDICAID ==
[~2024-10-18] VITALS: Ht 157.5 cm; Wt 53.1 kg
[2024-10-18] MEDS: NS (Normal Saline) 0.9% 1,000 ML IV ONE (15:31)
[2024-10-18] MEDS: METOCLOPRAMIDE INJ 10MG/2ML VIAL IV ONE (15:32)
[2024-10-18] MEDS: diphenhydrAMINE 50MG/ML VIAL IV ONE (15:32)
[2024-10-18] MEDS: ACETAMINOPHEN 500 MG TAB PO ONE (15:32)
[2024-10-18 15:40] LABS: MEAN CORPUSCULAR HGB CONC 33.3 g/dl (32.0-36.5); PLATELET COUNT, AUTOMATED 172 10^3/uL (150-450); RED BLOOD COUNT 4.83 10^6/uL (4.00-5.40); WHITE BLOOD COUNT 3.8 10^3/uL (4.0-10.0)
[2024-10-18 15:44] LABS: ERYTHROCYTE SEDIMENTATION RATE 10 mm/hr (0-30)
[2024-10-18 16:12] LABS: BLOOD UREA NITROGEN 15 MG/DL (9-23); C REACTIVE PROTEIN QUANTITATIV < 0.50 MG/DL (<1.0); CALCIUM LEVEL 8.7 MG/DL (8.5-10.1); CARBON DIOXIDE LEVEL 28 MMOL/L (20-31); CHLORIDE LEVEL 105 MMOL/L (98-107); CREATININE FOR GFR 0.77 MG/DL (0.55-1.30); GLOMERULAR FILTRATION RATE > 60.0 (>51); GLUCOSE, FASTING 83 MG/DL (60-100); SODIUM LEVEL 144 MMOL/L (136-145)
[2024-10-18 17:15] VITALS: BP 92/55; TEMP 97.5; O2SAT 96
[2024-10-18] MEDS: KETOROLAC 30 MG/ML 1ML VIAL IV ONE (17:20)
== END 2024-10-18 17:20 | disposition home or self-care (01) ==
LOC: M ED 10:47
DX: J09.X2 Influenza due to identified novel influenza A virus with other respiratory manifestations (principal); G43.909 Migraine, unspecified, not intractable, without status migrainosus; Z88.8 Allergy status to other drugs, medicaments and biological substances; Z91.040 Latex allergy status; Z79.1 Long term (current) use of non-steroidal anti-inflammatories (NSAID); Z79.899 Other long term (current) drug therapy
CPT/HCPCS: 70450; 80048; 85027; 85652; 86140; 87486; 87581; 87633; 87798; 96361; 96374; 99284; J1200; J2765

== ENCOUNTER → 2025-04-01 | Outpatient (REF) | payer MEDICARE, MEDICAID ==
[~2025-04-01] MED LIST changes: +AMIT10TA11 PO; -AMIT10TA7 PO; -BUPR-597 PO; +BUPR-766 PO; +CEFD300CAP PO; +CYCL5TAB4 PO; -ESTR1TAB; +ESTR1TAB PO; +GABA-1172 PO; +IBUP1TAB6 PO; +LAMO-18; -LAMO25TA4; +METH-1165 PO; +MIRA3350 PO; +MM S100C PO; +MOM30SS2 PO; +ONDA-282 PO; +PERC5TAB12 PO; +RIZA10TA64 PO
== END ==
LOC: EEVIPCON 16:53 → M LAB REF 16:53
PROVIDERS: ATTEND Registered Nurse
DX: R35.0 Frequency of micturition (principal)

== ENCOUNTER → 2025-04-27 | Outpatient (CLI) | payer MEDICARE, MEDICAID ==
[2025-04-27 10:14] LABS: ESTIMATED AVERAGE GLUCOSE 94.0 MG/DL (60-110)
[2025-04-27 10:21] LABS: ALT/SGPT 17.0 U/L (7.0-40); AST/SGOT 23.0 U/L (<34); CALCIUM LEVEL 8.8 MG/DL (8.5-10.1); CARBON DIOXIDE LEVEL 25.0 MMOL/L (20-31); CHLORIDE LEVEL 105.0 MMOL/L (98-107); CHOLESTEROL LEVEL 242.0 MG/DL (<200); CHOLESTEROL RISK RATIO 4.07 (<5); CREATININE FOR GFR 1.05 MG/DL (0.55-1.30); GLOMERULAR FILTRATION RATE 64.7 (>51); LDL CHOLESTEROL 163.0 MG/DL (<100); NON-HDL-C 182.6 MG/DL; POTASSIUM SERUM 4.6 MMOL/L (3.5-5.1); SODIUM LEVEL 142.0 MMOL/L (136-145); TRIGLYCERIDES LEVEL 98.0 MG/DL (<150)
[2025-04-27 10:25] LABS: FREE T4 1.03 NG/DL (0.89-1.76)
== END ==
LOC: M LAB 09:05
PROVIDERS: ATTEND Registered Nurse
DX: Z00.00 Encounter for general adult medical examination without abnormal findings (principal); E07.9 Disorder of thyroid, unspecified; E78.00 Pure hypercholesterolemia, unspecified

== ENCOUNTER → 2025-05-04 | Outpatient (CLI) | payer MEDICARE, MEDICAID ==
[2025-05-04 12:02] LABS: APPEARANCE, URINE CLEAR (CLEAR); BACTERIA, URINE AUTO 1+ (NEGATIVE); BILIRUBIN, URINE AUTO NEGATIVE (NEGATIVE); BLOOD, URINE BLOOD NEGATIVE (NEGATIVE); GLUCOSE, URINE (UA) AUTO NEGATIVE (NEGATIVE); KETONE, URINE AUTO NEGATIVE (NEGATIVE); LEUKOCYTE ESTERASE, URINE AUTO NEGATIVE (NEGATIVE); MUCUS, URINE SMALL (NEGATIVE); NITRITE, URINE AUTO NEGATIVE (NEGATIVE); PROTEIN, URINE AUTO NEGATIVE (NEGATIVE); RBC, URINE AUTO 0 /HPF (0-3); SPECIFIC GRAVITY URINE AUTO 1.013 (1.002-1.035); SQUAMOUS EPITHELIAL CELL UR AU 1 /HPF (0-6); UROBILINOGEN, URINE AUTO 0.2 mg/dL (0.0-2.0); WBC, URINE AUTO 2 /HPF (0-3)
== END ==
LOC: M LAB 10:51
PROVIDERS: ATTEND Registered Nurse
DX: R30.0 Dysuria (principal)

== ENCOUNTER → 2025-05-14 | Outpatient (CLI) | payer MEDICARE, MEDICAID | LOC: M RAD 09:35 | PROVIDERS: ATTEND Physician Assistant | DX: M50.123 Cervical disc disorder at C6-C7 level with radiculopathy (principal); Z98.1 Arthrodesis status ==

== ENCOUNTER → 2025-05-21 | Outpatient (CLI) | payer MEDICARE, MEDICAID ==
[~2025-05-21] MED LIST changes: -IBUP1TAB6 PO; +SFHIBU600 PO
== END ==
LOC: M WHC 07:52
PROVIDERS: ATTEND Registered Nurse
DX: Z12.31 Encounter for screening mammogram for malignant neoplasm of breast (principal); R92.333 Mammographic heterogeneous density, bilateral breasts

== ENCOUNTER → 2025-06-16 | Outpatient (CLI) | payer MEDICARE, MEDICAID | LOC: M RAD 08:45 | PROVIDERS: ATTEND Neurological Surgery | DX: M50.123 Cervical disc disorder at C6-C7 level with radiculopathy (principal) ==

== ENCOUNTER → 2025-09-16 | Outpatient (CLI) | payer MEDICARE, MEDICAID | LOC: M RAD 13:19 | PROVIDERS: ATTEND Neurological Surgery | DX: M50.123 Cervical disc disorder at C6-C7 level with radiculopathy (principal) ==